=== PATIENT | male | born 1960 | race Caucasian/White ===

== ENCOUNTER 2024-01-24 09:33 | Emergency (ER) | payer OTHER, SELFPAY ==
[2024-01-24 09:55] VITALS: BP 177/102
--- NOTE | 2024-01-24 10:13 | ED.GENMED ---
History of Present Illness
General
Chief Complaint: Male Genito-Urinary Symptoms
Source: patient and spouse
Exam Limitations: none
Time Seen by Provider: 01/24/24 09:59
Nursing documentation reviewed up to this point in time: agreed with
History of Present Illness
History of Present Illness:
63-year-old male presenting to the emergency department today with concerns of inability to urinate since last night. Worsening discomfort this morning. Does have a history of enlarged prostate and has had some difficulty with starting his stream
over the past few weeks. Follows up with urology as an outpatient last seen [address] Fong. Denies any additional symptoms no new medications. Has been taking alfuzosin.
Review of Systems
Review of Systems
Allergies reviewed?: Yes
All Other Systems: ROS reviewed and negative except as documented in HPI and ROS
Phy Exam
Physical Exam
Physical Exam:
GENERAL: Alert , in no apparent distress
EYE: pupils equal and reactive
NECK: Supple, no significant adenopathy.
ENT: o/p clr, mmm.
CARDIAC: Regular rate and rhythm .
LUNGS: Clear breath sounds bilaterally, no acute respiratory distress, no wheezes/rales/rhonchi
ABDOMEN: Significant distention to the suprapubic region on examination discomfort to the area to palpation
NEUROLOGICAL: Alert and oriented, no focal neuro deficits
SKIN: Warm and dry, skin intact.
MUSCULOSKELETAL: No edema, well perfused.
PSYCH: Normal and appropriate interaction.
Course
Orders/Labs/Results
Orders:
Orders
01/24/24 10:08
Lidocaine 2% [Lidocaine Uro-Jet 2%] 1 syringe .[address] .[facility]
01/24/24 10:18
Urinalysis Reflex To Culture Urgent
Date Specimen was Collected: 01/24/24
Time Specimen was Collected: 10:17
Urine Microscopic Reflex Cult Urgent
Abnormal Lab Results
01/24/24
10:18
Ur Occult Blood Reflex 1+ A
(Negative)
Vital Signs
Initial and Last Documented VS:
Initial Vital Signs
Temp Pulse Resp BP Pulse Ox
98.2 F 88 18 177/102 97
01/24/24 09:55 01/24/24 09:55 01/24/24 09:55 01/24/24 09:55 01/24/24 09:55
Last Documented Vital Signs
Temp Pulse Resp BP Pulse Ox
98.2 F 88 18 177/102 97
01/24/24 09:55 01/24/24 09:55 01/24/24 09:55 01/24/24 09:55 01/24/24 09:55
MDM/Problems Addressed
MDM/Problems Addressed:
63-year-old male presenting to the emergency department with urinary retention since last night. Unable to void over the past few hours. Has had some tea starting a stream over the past few weeks and does have a history of known enlarged prostate.
No new medications or new changes according to the patient. On arrival blood pressure elevated otherwise vital signs are normal. Kapoor catheter was placed with at least 600 cc immediately draining. Immediately relief in symptoms with the
patient. Case discussed with urology will follow-up closely as an outpatient return precautions given.
*Critical Care Note
Total Time (30-74mins, 75-104mins- exclusive of procedures): Not Applicable
ED Attending Note
-
Portions of this chart may have been created with voice recognition software.� Occasional wrong word or��sound alike� substitutions may have occurred due to the inherent limitations of voice recognition software.
Discharge Plan
Departure
Patient Disposition: Home (Routine Discharge)
Date of Disposition: 01/24/24
Time of Disposition: 11:52
Patient with high blood pressure during this ER visit?: No
Condition: Good
Covid-19: Not Applicable
Discharge Problem:
Acute urinary retention
Instructions: How to Care for Your Kapoor Catheter, Male, Urinary Retention (DC)
Prescriptions:
No Action
allopurinol 300 MG tablet
300 mg PO DAILY
rosuvastatin [Crestor] 10 MG tablet
10 mg PO DAILY
alfuzosin 10 MG tablet extended release 24 hr
10 mg PO DAILY
hydrocodone-acetaminophen 1 TABLET tablet
1 - 2 tab PO Q4HPRN PRN (Reason: moderate to severe pain) Qty: 20 0RF
ondansetron 4 MG tablet,disintegrating
4 mg PO Q6HPRN PRN (Reason: nausea) Qty: 20 0RF
cephalexin 500 mg capsule
500 mg PO Q6H Qty: 20 0RF
Referrals:
Russel Byrd MD [Active] - Follow up in 5-7 days
Jag Vicente DO [Family Provider] -
Activity Restrictions/Additional Instructions:
You came to the emergency department today with concerns of urinary retention. You had a Kapoor placed. Please follow-up closely with urology in the next 1 to 2 weeks. Return to the emergency department for any worsening, new or concerning
symptoms.
Interventions
Interventions:
*Risk Screen - Suicide Last Done: 01/24/24 09:55
*General Assessment Last Done: 01/24/24 09:55
*Neglect/Abuse Screening Last Done: 01/24/24 09:55
Discharge Date and Time
Print Language: KHMER
[2024-01-24 10:31] LABS: Urine Albumin Negative (Neg - Trace); Urine Bilirubin Negative (Negative); Urine Character Clear (Clear); Urine Color Yellow; Urine Glucose Negative (Negative); Urine Ketone Negative (Negative); Urine Leukocyte Negative (Negative); Urine Nitrite Negative (Negative); Urine Occult Blood 1+ (Negative); Urine Specific Gravity 1.015 (<1.030); Urine Urobilinogen Negative (Neg - 1+)
[2024-01-24 12:28] VITALS: BP 141/89
[2024-01-24 12:46] LABS: Urine Amorphous Seen; Urine Squamous Cell 0-2 /LPF (Few); Urine White Cell 0-2 /HPF (0-5)
== END 2024-01-24 12:15 | disposition home or self-care (01) ==
LOC: EMR 09:33
PROVIDERS: Physician Assistant; EMERGENCY PHYSICIAN Emergency Medicine; FAMILY PHYSICIAN Internal Medicine
DX: N40.1 Benign prostatic hyperplasia with lower urinary tract symptoms (principal); R33.8 Other retention of urine
CPT/HCPCS: 51702; 99283; 81003; 81015

== ENCOUNTER 2024-02-03 17:27 | Emergency (ER) | payer OTHER, SELFPAY ==
[2024-02-03 17:28] VITALS: BP 148/98
[2024-02-03 18:32] VITALS: BMI 27.5
--- NOTE | 2024-02-03 18:44 | ED.GENMED ---
Addendum entered and electronically signed by Howard Bacon PA-C 02/06/24 10:48:
Urine culture shows gram-negative bacilli greater than 100,000 colony-forming units. Patient placed on cefdinir. Sensitivities pending
Original Note:
History of Present Illness
<LASHAY Stephens - Last Filed: 02/03/24 21:54>
General
Chief Complaint: Flank Pain
Source: patient
Exam Limitations: none
Time Seen by Provider: 02/03/24 18:10
History of Present Illness
History of Present Illness:
This is a 62 year old male that comes in with c/o fever and chills. States that he had a catheter on the 02-22 as he was unable to urinate. States that he went to the Urologist on Monday and he had this removed. States that 2 days ago he
started with some upper back aches and then today he just couldn't get warm. States that he had a headache, pain and tingling in the extremities and his left kidney area hurt. Occasionally the right kidney area is sore. States that he has a fever
and urinary frequency. States that he had chills, burning at the end of urination. Denies any chest pain, SOB, abd pain, nausea, vomiting, diarrhea, dizziness.
Past History
<LASHAY Stephens - Last Filed: 02/03/24 21:54>
Past History
ED Past Medical History: Hypercholesterolemia and Other (hemorrhoids, Hernia, tinnitus, varicocele)
ED Past Surgical History: Other (Deviated septum, Upper eye lid surgery)
Social History
Tobacco: Non-smoker
Alcohol: Occasional
Personal:
Living: with family
Review of Systems
<LASHAY Stephens - Last Filed: 02/03/24 21:54>
Review of Systems
All Other Systems: ROS reviewed and negative except as documented in HPI and ROS
Constitutional: Reports fever and chills
EENT: Reports no symptoms
Respiratory: Reports no symptoms; Denies cough or trouble breathing
Cardiac: Reports no symptoms; Denies chest pain
ABD/GI: Reports no symptoms; Denies abdominal pain, nausea, vomiting or diarrhea
: Reports dysuria and frequency; Denies urgency
Musculoskeletal: Reports other (Body aches)
Skin: Reports no symptoms
Neurological: Reports headache; Denies dizzy
Psychiatric: Reports no symptoms
Phy Exam
<LASHAY Stephens - Last Filed: 02/03/24 21:54>
General Physical Exam
General Presentation: no apparent distress
General age: appears stated age
General Skin: warm and dry
General Habitus: normal
General Mental: alert
General Hydration: dry mucous membranes
ENT Exam
ENT Exam: TM's normal, pharynx normal and neck supple
Eye Exam
Eye Exam: EOMI
Cardiovascular Exam
Cardiovascular Exam: regular rate/rhythm, no edema, no murmur and normal peripheral pulses
Pulmonary Exam
Pulmonary Exam: lungs clear, no respiratory distress, no rales, chest non tender, no crackles, no rhonchi, no wheezing and no cough
Gastrointestinal Exam
Gastrointestinal Exam: normal bowel sounds, non tender, soft, no organomegaly, no pulsatile mass, non distended and no cva tenderness
Musculoskeletal Exam
Musculoskeletal Exam: full ROM and no edema
Skin Exam
Skin Exam: normal color, warm/dry, no rash and no petechia
Psychiatric Exam
Psychiatric Exam: normal mood/affect
Sepsis
<LASHAY Stephens - Last Filed: 02/03/24 21:54>
Sepsis Screening
Sepsis Assessment: Sepsis Ruled Out
Sepsis Screen
Sepsis Screen: Sepsis Ruled Out
Date: 02/03/24
Time: 21:54
Course
<LASHAY Stephens - Last Filed: 02/03/24 21:54>
Orders/Labs/Results
Orders:
Orders
02/03/24 18:43
0.9% Sodium Chloride 1000 ml [Nss] 1,000 ml IV BOLUS
Acetaminophen [Tylenol] 1,000 mg PO NOW STA
02/03/24 18:51
CT Abd/pel Without Iv Or Oral Urgent
Comment:
Reason For Exam: Left kidney pain. fever
02/03/24 18:56
COVID-19 Antigen Urgent
Source: Nasal Swab
Complete Blood Count/With Diff Urgent
Comprehensive Metabolic Panel Urgent
Lactic Acid Q4H
Comment: CANCEL 2nd LACTIC ACID IF 1st LACTIC ACID IS LESS THAN 2
Urinalysis Reflex To Culture Urgent
Date Specimen was Collected: 02/03/24
Time Specimen was Collected: 18:46
Urine Microscopic Reflex Cult Urgent
Blood Culture Urgent
SAW Source: Blood/Venous
Specimen Description:
Urine Culture Urgent
SAW Source: U
Specimen Description:
Date Specimen was Collected: 02/03/24
Time Specimen was Collected: 18:46
02/03/24 20:32
CefTRIAXone [Rocephin] 1,000 mg IV NOW STA
02/03/24 22:45
Lactic Acid Q4H
Comment: CANCEL 2nd LACTIC ACID IF 1st LACTIC ACID IS LESS THAN 2
Abnormal Lab Results
02/03/24
18:56
WBC 13.0 H 10^3/uL
(4.8-10.8)
RBC 4.16 L 10^6/uL
(4.70-6.10)
Hgb 12.7 L g/dL
(13.0-18.0)
Hct 38.3 L %
(39.0-52.0)
Absolute Neuts (auto) 10.4 H 10^3/uL
(1.4-6.5)
Absolute Monos (auto) 1.1 H 10^3/uL
(0.1-0.6)
Neutrophils % 80.1 H %
(42.2-75.2)
Lymphocytes % 10.1 L %
(20.5-51.1)
BUN 21 H mg/dl
(9-20)
Total Bilirubin 1.4 H mg/dl
(0.2-1.3)
Ur Occult Blood Reflex Trace A
(Negative)
Urine Nitrite (Reflex) Positive A
(Negative)
Leukocyte Esterase Rfl 2+ A
(Negative)
Urine WBC (Reflex) 26-30 A /HPF
(0-5)
Urine Bacteria (Reflex) Many A
(Negative)
02/03/24 18:56
02/03/24 18:56
Leukocytosis, H/H slightly low. Dehydration. Urine positive for infection. Lactic acid normal at 0.7, COVID negative.
Vital Signs
Initial and Last Documented VS:
Initial Vital Signs
Temp Pulse Resp BP Pulse Ox
101.5 F H 110 16 148/98 96
02/03/24 17:28 02/03/24 17:28 02/03/24 17:28 02/03/24 17:28 02/03/24 17:28
Last Documented Vital Signs
Temp Pulse Resp BP Pulse Ox
101.5 F H 93 16 148/98 96
02/03/24 17:28 02/03/24 18:32 02/03/24 18:32 02/03/24 17:28 02/03/24 17:28
<Alli Perez MD - Last Filed: 02/03/24 21:45>
Orders/Labs/Results
Orders:
Orders
02/03/24 18:43
0.9% Sodium Chloride 1000 ml [Nss] 1,000 ml IV BOLUS
Acetaminophen [Tylenol] 1,000 mg PO NOW STA
02/03/24 18:51
CT Abd/pel Without Iv Or Oral Urgent
Comment:
Reason For Exam: Left kidney pain. fever
02/03/24 18:56
COVID-19 Antigen Urgent
Source: Nasal Swab
Complete Blood Count/With Diff Urgent
Comprehensive Metabolic Panel Urgent
Lactic Acid Q4H
Comment: CANCEL 2nd LACTIC ACID IF 1st LACTIC ACID IS LESS THAN 2
Urinalysis Reflex To Culture Urgent
Date Specimen was Collected: 02/03/24
Time Specimen was Collected: 18:46
Urine Microscopic Reflex Cult Urgent
Blood Culture Urgent
SAW Source: Blood/Venous
Specimen Description:
Urine Culture Urgent
SAW Source: U
Specimen Description:
Date Specimen was Collected: 02/03/24
Time Specimen was Collected: 18:46
02/03/24 20:32
CefTRIAXone [Rocephin] 1,000 mg IV NOW STA
02/03/24 22:45
Lactic Acid Q4H
Comment: CANCEL 2nd LACTIC ACID IF 1st LACTIC ACID IS LESS THAN 2
Abnormal Lab Results
02/03/24
18:56
WBC 13.0 H 10^3/uL
(4.8-10.8)
RBC 4.16 L 10^6/uL
(4.70-6.10)
Hgb 12.7 L g/dL
(13.0-18.0)
Hct 38.3 L %
(39.0-52.0)
Absolute Neuts (auto) 10.4 H 10^3/uL
(1.4-6.5)
Absolute Monos (auto) 1.1 H 10^3/uL
(0.1-0.6)
Neutrophils % 80.1 H %
(42.2-75.2)
Lymphocytes % 10.1 L %
(20.5-51.1)
BUN 21 H mg/dl
(9-20)
Total Bilirubin 1.4 H mg/dl
(0.2-1.3)
Ur Occult Blood Reflex Trace A
(Negative)
Urine Nitrite (Reflex) Positive A
(Negative)
Leukocyte Esterase Rfl 2+ A
(Negative)
Urine WBC (Reflex) 26-30 A /HPF
(0-5)
Urine Bacteria (Reflex) Many A
(Negative)
02/03/24 18:56
02/03/24 18:56
Vital Signs
Initial and Last Documented VS:
Initial Vital Signs
Temp Pulse Resp BP Pulse Ox
101.5 F H 110 16 148/98 96
02/03/24 17:28 02/03/24 17:28 02/03/24 17:28 02/03/24 17:28 02/03/24 17:28
Last Documented Vital Signs
Temp Pulse Resp BP Pulse Ox
101.5 F H 93 16 148/98 96
02/03/24 17:28 02/03/24 18:32 02/03/24 18:32 02/03/24 17:28 02/03/24 17:28
<LASHAY Stephens - Last Filed: 02/03/24 21:54>
MDM/Problems Addressed
Differential Diagnosis Includes:
UTI, COVID, Renal calculus
MDM/Problems Addressed:
This is a 63 year old male that comes in with c/o fever and urinary burning. States that he had a catheter removed on Monday and that he know has body aches, fever, urinary frequency and burning.
Will check labs. CT scan to r/o any stones and Urine. Will give IV fluids and Tylenol.
Back into see patient and . Reviewed findings and explained why CT was obtained. Dr. Perez into see patient and speak with a ID Friend in [place].
It was decided that the patient will go home and the ID doctor would like patient on Antibiotics for [address] on Cefdinir for 2 weeks with follow up with Dr. Fong. Will discharge home
Chronic conditions affecting care:
NA
Acute Exacerbation and/or Progression of Chronic Illness:
NA
<LASHAY Stephens - Last Filed: 02/03/24 21:54>
*Radiology
Radiology exam reviewed: radiology read reviewed (CT- Suspect cystitis in the appropirate clinical centex. Otherwise no significant acute abnormality identified in the abdomen or pelvis, within the limits of unenhanced CT, as described above. No
urinary calculi or hydronephrosis. )
*Pulse Oximetry
Patient hypoxic: no
*EKG
Interpreted by ED Provider?: NA
Rate: EKG- N/A
*[place] Interpretation
Rate: [place] Reo- N/A
*Critical Care Note
Total Time (30-74mins, 75-104mins- exclusive of procedures): Not Applicable
ED Attending Note
<LASHAY Stephens - Last Filed: 02/03/24 21:54>
-
Portions of this chart may have been created with voice recognition software.� Occasional wrong word or��sound alike� substitutions may have occurred due to the inherent limitations of voice recognition software.
<Alli Perez MD - Last Filed: 02/03/24 21:45>
ED Attending Note
Patient seen and examined by attending physician: Yes
I performed the substantive portion of visit, reviewed & personally made and approve the management plan that is documented in note by myself or ROME.: Yes
ED Attending Note:
63-year-old male Kapoor removal 3 to 4 days ago. Fever chills today. No vomiting no lightheadedness or weakness. No other infectious symptoms.
Patient is nontoxic. Currently on his iPad. Lungs clear and equal. Heart regular rate and rhythm. Abdomen soft and nontender. No suprapubic distention. No CVA tenderness.
Labs consistent with a infected urine. Lactic acid normal. CT shows cystitis. No obstructing stone. Discussed with patient family and family friend who is an infectious disease physician. Comfortable with outpatient management.
Discharge Plan
Departure
Patient Disposition: Home (Routine Discharge)
Date of Disposition: 02/03/24
Time of Disposition: 21:45
Patient with high blood pressure during this ER visit?: Yes
Condition: Good
Covid-19: Not Applicable
Discharge Problem:
Urinary tract infection
Instructions: Urinary Tract Infection, Adult ED, BLOOD PRESSURE
Prescriptions:
New
cefdinir 300 mg capsule
300 mg PO BID Qty: 28 0RF
No Action
allopurinol 300 MG tablet
300 mg PO DAILY
rosuvastatin [Crestor] 10 MG tablet
10 mg PO DAILY
alfuzosin 10 MG tablet extended release 24 hr
10 mg PO DAILY
hydrocodone-acetaminophen 1 TABLET tablet
1 - 2 tab PO Q4HPRN PRN (Reason: moderate to severe pain) Qty: 20 0RF
ondansetron 4 MG tablet,disintegrating
4 mg PO Q6HPRN PRN (Reason: nausea) Qty: 20 0RF
cephalexin 500 mg capsule
500 mg PO Q6H Qty: 20 0RF
Referrals:
Johnie Fong Jr., MD [Active] - Follow up in 2-3 days
Jag Vicente DO [Family Provider] -
Activity Restrictions/Additional Instructions:
As discussed, your blood work shows that your white blood cell count is mildly elevated. Your are slightly dehydration. Please increase your water intake to 8-8oz glasses daily. Your are postive for a urinary tract infection and your CT shows
cystitis. You are negative for COVID. You have been given IV antibiotic here and a prescription has been sent to your Pharmacy for the next 14 days. Please follow up with your Urologist for further evaluation. Tylenol 1000mg every 6 hours as needed
for any fever. IF YOU HAVE FEVER THAT IS NOT CONTROLLED OR YOU JUST DON'T FEEL WELL PLEASE RETURN TO THE EMERGENCY ROOM.
Interventions
Interventions:
*Risk Screen - Suicide Last Done: 02/03/24 17:28
*General Assessment Last Done: 02/03/24 17:28
*Neglect/Abuse Screening Last Done: 02/03/24 17:28
ED- Fall Risk Assessment Last Done: 02/03/24 18:32
*ED COVID-19 Vaccine History Last Done: 02/03/24 17:28
RC-Jzygdq-Tsmoywlluc Assessment Last Done: 02/03/24 18:32
ED-Male Genitourinary Assessment Last Done: 02/03/24 18:32
Discharge Date and Time
Print Language: LATVIAN
[2024-02-03] MEDS: TYLENOL 1000 MG PO (18:50)
[2024-02-03] MEDS: NSS 1000 IV (18:56)
[2024-02-03 19:21] LABS: Lactic Acid 0.7 mmol/L (0.7-2.0)
[2024-02-03 19:22] LABS: Urine Albumin Trace (Neg - Trace); Urine Bilirubin Negative (Negative); Urine Character Very Cloudy (Clear); Urine Color Yellow; Urine Glucose Negative (Negative); Urine Ketone Negative (Negative); Urine Leukocyte 2+ (Negative); Urine Nitrite Positive (Negative); Urine Occult Blood Trace (Negative); Urine Urobilinogen Negative (Neg - 1+)
[2024-02-03 19:24] LABS: ALT (SGPT) 24 U/L (0-50); AST (SGOT) 24 U/L (17-59); Albumin 4.2 g/dl (3.5-5.0); Alkaline Phosphatase 97 U/L (38-126); Blood Urea Nitrogen 21 mg/dl (9-20); Calcium 9.1 mg/dl (8.4-10.2); Carbon Dioxide 25 mmol/L (22-30); Chloride 104 mmol/L (98-107); Estimated Creatinine Clearance 60 ml/min; Glucose 99 mg/dl (70-99); Potassium 4.4 mmol/L (3.5-5.1); Sodium 139 mmol/L (135-145); Total Bilirubin 1.4 mg/dl (0.2-1.3); Total Protein 7.1 g/dl (6.3-8.2); eGFR > 60.00
[2024-02-03 19:30] LABS: COVID-19 Antigen Negative (Negative)
[2024-02-03 19:32] LABS: Urine Bacteria Many (Negative); Urine Squamous Cell 0-2 /LPF (Few)
[2024-02-03 19:33] LABS: Urine Red Blood Cell 0-2 /HPF (0-2); Urine White Cell 26-30 /HPF (0-5)
[2024-02-03 20:59] LABS: % Basophils 0.4 % (0-2); % Eosinophils 0.5 % (0-6); % Immature Granulocytes 0.3 % (0-0.5); % Lymphocytes 10.1 % (20.5-51.1); % Monocytes 8.6 % (1.7-9.3); % Neutrophils 80.1 % (42.2-75.2); Absolute Basophils 0.1 10^3/uL (0-0.2); Absolute Eosinophils 0.1 10^3/uL (0-0.7); Absolute Lymphocytes 1.3 10^3/uL (1.2-3.4); Absolute Monocytes 1.1 10^3/uL (0.1-0.6); Absolute Neutrophils 10.4 10^3/uL (1.4-6.5); Hematocrit 38.3 % (39.0-52.0); Hemoglobin 12.7 g/dL (13.0-18.0); Mean Corp Hgb Conc. 33.2 g/dL (33.0-37.0); Mean Corpuscular Hgb 30.5 pg (27.0-31.0); Mean Corpuscular Volume 92.1 fL (80.0-94.0); Mean Platelet Volume 9.6 fL (7.4-10.4); Nucleated Red Blood Cells % 0 % (-); Platelet Count 209 10^3/uL (130-400); Red Blood Cell Count 4.16 10^6/uL (4.70-6.10); Red Cell Dist. Width 12.7 % (11.5-14.5)
[2024-02-03] MEDS: ROCEPHIN 1000 MG IV (21:18)
[2024-02-03 21:25] VITALS: BP 126/78
== END 2024-02-03 22:01 | disposition home or self-care (01) ==
LOC: EMR 17:27
PROVIDERS: Clinical Nurse Specialist Family Health; EMERGENCY PHYSICIAN Emergency Medicine; FAMILY PHYSICIAN Internal Medicine
DX: N39.0 Urinary tract infection, site not specified (principal); E78.00 Pure hypercholesterolemia, unspecified; Z87.19 Personal history of other diseases of the digestive system
CPT/HCPCS: 99284; 96374; 96361; 74176; 80053; 81003; 81015; 83605; 85025; 87040; 87077; 87086; 87811

== ENCOUNTER 2024-02-07 10:45 | Emergency (ER) | payer OTHER, SELFPAY ==
[2024-02-07 10:45] VITALS: BMI 28.1
[2024-02-07 11:02] VITALS: BP 158/98
[2024-02-07 12:00] VITALS: BP 134/68
--- NOTE | 2024-02-07 12:01 | ED.GENMED ---
History of Present Illness
General
Chief Complaint: Abnormal Lab Value
Source: patient
Exam Limitations: none
Time Seen by Provider: 02/07/24 11:44
Nursing documentation reviewed up to this point in time: agreed with
History of Present Illness
History of Present Illness:
Patient seen in ED 5 days ago and treated with antibiotics for urinary tract infection, presents to ED from urology office after urine culture came back positive for drug-resistant organism. Patient has been on cefdinir upon discharge. Patient
states that since being discharged from the ED, he was still continued to experience fever and chills, back pain and body ache. However, starting yesterday, fever has subsided and when he woke up this morning, patient family felt as if he was
feeling better. Patient denies fever over the past 24 hours. Denies nausea or vomiting. Denies loss of appetite. Denies back pain. Denies difficulty with urination.
Past History
Past History
ED Past Medical History: Hypercholesterolemia and Other (hemorrhoids, Hernia, tinnitus, varicocele)
ED Past Surgical History: Other (Deviated septum, Upper eye lid surgery)
Social History
Tobacco: Non-smoker
Alcohol: Occasional
Personal:
Living: with family
Review of Systems
Review of Systems
Allergies reviewed?: Yes
All Other Systems: ROS reviewed and negative except as documented in HPI and ROS
Constitutional: Reports fever and chills
ABD/GI: Reports no symptoms
: Reports no symptoms
Musculoskeletal: Reports no symptoms
Skin: Reports no symptoms
Neurological: Reports no symptoms
Phy Exam
Physical Exam
Physical Exam:
Physical Exam
General: no apparent distress, not acutely ill. afebrile
Head: nc/at. eomi
Neck: supple. no meningeal signs.
Heart: s1/s2 regular rate and rhythm, no murmur. equal radial pulses.
Lungs: no acute respiratory distress. clear bilaterally
Abdomen: normal bowel sounds. not tender.
Neuro: alert and oriented. no focal neurological deficits
Skin: no rash
Psychiatric: well kept. interactive and cooperative
Extremities: no edema. no calf tenderness.
Course
Vital Signs
Initial and Last Documented VS:
Initial Vital Signs
Temp Pulse Resp BP Pulse Ox
97.9 F 83 16 158/98 100
02/07/24 11:02 02/07/24 11:02 02/07/24 11:02 02/07/24 11:02 02/07/24 11:02
Last Documented Vital Signs
Temp Pulse Resp BP Pulse Ox
97.9 F 74 16 134/68 99
02/07/24 11:02 02/07/24 12:00 02/07/24 14:00 02/07/24 12:00 02/07/24 12:00
MDM/Problems Addressed
MDM/Problems Addressed:
Reviewed urine culture result from 02/02, and discussed result with on-call ID physician, Dr. Gordillo, including patient's clinical presentation. As patient has remained afebrile over the past 24 hours, with complete resolution of any symptoms
today, it is quite likely that patient is improving clinically despite urine culture result which had revealed ESBL E. coli. As such, there is no definitive indication to switch patient's antibiotics via PICC line for extended treatment. Will
recommend that patient continue his already prescribed antibiotics and follow-up with his PMD/urologist for reevaluation. If at any point, patient's symptoms were to worsen, i.e. fever/chills/body aches/back pain, patient advised to return to ED
immediately for reevaluation, including likely admission for IV antibiotics. Discussed treatment options, including potential admission to the hospital at this time. However, with discussion and recommendation from ID physician, patient feels
comfortable going home at this time, with treatment plan outlined.
Dr. Fong, urology, made aware. Urine culture has been reordered during office visit this morning. Dr. Fong will follow-up with the patient on Monday.
*Critical Care Note
Total Time (30-74mins, 75-104mins- exclusive of procedures): Not Applicable
ED Attending Note
-
Portions of this chart may have been created with voice recognition software.� Occasional wrong word or��sound alike� substitutions may have occurred due to the inherent limitations of voice recognition software.
Discharge Plan
Departure
Patient Disposition: Home (Routine Discharge)
Date of Disposition: 02/07/24
Time of Disposition: 14:23
Patient with high blood pressure during this ER visit?: Yes
Condition: Good
Discharge Problem:
Acute UTI
Instructions: Urinary Tract Infection, Adult ED
Prescriptions:
No Action
allopurinol 300 MG tablet
300 mg PO QPM
rosuvastatin [Crestor] 10 MG tablet
10 mg PO QPM
acetaminophen [Tylenol Extra Strength] 500 mg Tablet
1,000 mg PO BIDPRN PRN (Reason: FEVER)
tamsulosin [Flomax] 0.4 mg Capsule
0.4 mg PO BID
ibuprofen [Advil] 200 mg Tablet
400 mg PO Q8HPRN PRN (Reason: headache )
methen-sod phos-meth blue-hyos [Urogesic-Blue] 81.6-40.8-0.12 mg Tablet
1 tab PO BID
Patient Comments:
02/07/24-PATIENT HAS FREE SAMPLES
cefdinir 300 mg capsule
300 mg PO BID
Referrals:
Jag Vicente DO [Family Provider] -
Activity Restrictions/Additional Instructions:
As discussed, please follow-up with your primary care physician and/or neurologist for further evaluation treatment. Please return to ED immediately with recurrent fever/vomiting/back pain.
Interventions
Interventions:
*Risk Screen - Suicide Last Done: 02/07/24 11:02
*General Assessment Last Done: 02/07/24 11:02
*Neglect/Abuse Screening Last Done: 02/07/24 11:02
ED- Fall Risk Assessment Last Done: 02/07/24 13:57
*ED COVID-19 Vaccine History Last Done: 02/07/24 11:02
*Nursing Disposition Last Done: 02/07/24 14:28
Discharge Date and Time
Discharge Date/Time: 02/07/24 14:29
Print Language: ARMENIAN
--- NOTE | 2024-02-07 13:30 | CM ---
CM consult placed. Attending wanting to know if patient would be able to be d/c'd with a PICC and antibiotics with [facility] infusion. CM called [facility] infusion center. It would be difficult to accomplish, d/t the holiday tomorrow.
== END 2024-02-07 14:29 | disposition home or self-care (01) ==
LOC: EMR 10:45
PROVIDERS: EMERGENCY PHYSICIAN Emergency Medicine; FAMILY PHYSICIAN Internal Medicine
DX: N39.0 Urinary tract infection, site not specified (principal); R03.0 Elevated blood-pressure reading, without diagnosis of hypertension; M54.9 Dorsalgia, unspecified; E78.00 Pure hypercholesterolemia, unspecified; N40.1 Benign prostatic hyperplasia with lower urinary tract symptoms; R35.0 Frequency of micturition; Z87.891 Personal history of nicotine dependence
CPT/HCPCS: 99282

== ENCOUNTER 2024-02-10 07:07 | Emergency (ER) | payer OTHER, SELFPAY ==
[2024-02-10 07:12] VITALS: BP 157/120
--- NOTE | 2024-02-10 07:53 | ED.GENMED ---
History of Present Illness
General
Chief Complaint: Male Genito-Urinary Symptoms
Source: patient
Exam Limitations: none
Time Seen by Provider: 02/10/24 07:23
Nursing documentation reviewed up to this point in time: agreed with
History of Present Illness
History of Present Illness:
63-year-old male past medical history of BPH recent UTIs presenting to the emergency department today with concerns of urinary retention since this morning. Unable to urinate at home has been battling a urinary tract infection over the past few
weeks. Has needed a catheter in the past had this removed a few weeks ago. Follows with urology here.
Past History
Past History
ED Past Medical History: Hypercholesterolemia and Other (hemorrhoids, Hernia, tinnitus, varicocele)
ED Past Surgical History: Other (Deviated septum, Upper eye lid surgery)
Social History
Tobacco: Non-smoker
Alcohol: Occasional
Personal:
Living: with family
Review of Systems
Review of Systems
Allergies reviewed?: Yes
All Other Systems: ROS reviewed and negative except as documented in HPI and ROS
Phy Exam
Physical Exam
Physical Exam:
GENERAL: Alert , in no apparent distress
EYE: pupils equal and reactive
NECK: Supple, no significant adenopathy.
ENT: o/p clr, mmm.
CARDIAC: Regular rate and rhythm .
LUNGS: Clear breath sounds bilaterally, no acute respiratory distress, no wheezes/rales/rhonchi
ABDOMEN: Distended suprapubic region, otherwise soft, without focal tenderness, no r/g, no cvat
NEUROLOGICAL: Alert and oriented, no focal neuro deficits
SKIN: Warm and dry, skin intact.
MUSCULOSKELETAL: No edema, well perfused.
PSYCH: Normal and appropriate interaction.
Course
Orders/Labs/Results
Orders:
Orders
02/10/24 07:32
Lidocaine 2% [Lidocaine Uro-Jet 2%] 1 syringe .ROUTE .STK-MED ONE
02/10/24 07:50
Urinalysis Reflex To Culture Urgent
Date Specimen was Collected: 02/10/24
Time Specimen was Collected: 07:49
Comment: pastor placement, patient on medications causing blue hue
Urine Microscopic Reflex Cult Urgent
02/10/24 08:06
Pastor [Pastor Placement- Treatment] ONCE
Reason for insertion: Acute Retention
Abnormal Lab Results
02/10/24
07:50
Ur Occult Blood Reflex 1+ A
(Negative)
Urine RBC 11-15 A /HPF
(0-2)
Urine Bacteria (Reflex) Few A
(Negative)
Vital Signs
Initial and Last Documented VS:
Initial Vital Signs
Temp Pulse Resp BP Pulse Ox
98.1 F 82 16 157/120 98
02/10/24 07:12 02/10/24 07:12 02/10/24 07:12 02/10/24 07:12 02/10/24 07:12
Last Documented Vital Signs
Temp Pulse Resp BP Pulse Ox
98.1 F 82 16 157/120 98
02/10/24 07:12 02/10/24 07:12 02/10/24 07:12 02/10/24 07:12 02/10/24 07:12
MDM/Problems Addressed
MDM/Problems Addressed:
63-year-old male presenting with urinary retention. Recent UTI denies any symptoms of worsening urinary tract infection denies any fevers back pain nausea vomiting or any systemic symptoms. Catheter placed now patient asymptomatic. Urinalysis
without evidence of infection. Otherwise urology contacted patient will follow-up closely this week. Return precautions given.
*Critical Care Note
Total Time (30-74mins, 75-104mins- exclusive of procedures): Not Applicable
ED Attending Note
-
Portions of this chart may have been created with voice recognition software.� Occasional wrong word or��sound alike� substitutions may have occurred due to the inherent limitations of voice recognition software.
Discharge Plan
Departure
Patient Disposition: Home (Routine Discharge)
Date of Disposition: 02/10/24
Time of Disposition: 09:48
Patient with high blood pressure during this ER visit?: No
Condition: Good
Covid-19: Not Applicable
Discharge Problem:
Acute urinary retention
Instructions: How to Care for Your Pastor Catheter, Male, Urinary Retention (DC)
Prescriptions:
No Action
allopurinol 300 MG tablet
300 mg PO QPM
rosuvastatin [Crestor] 10 MG tablet
10 mg PO QPM
acetaminophen [Tylenol Extra Strength] 500 mg Tablet
1,000 mg PO BIDPRN PRN (Reason: FEVER)
tamsulosin [Flomax] 0.4 mg Capsule
0.4 mg PO BID
ibuprofen [Advil] 200 mg Tablet
400 mg PO Q8HPRN PRN (Reason: headache )
methen-sod phos-meth blue-hyos [Urogesic-Blue] 81.6-40.8-0.12 mg Tablet
1 tab PO BID
Patient Comments:
02/07/24-PATIENT HAS FREE SAMPLES
cefdinir 300 mg capsule
300 mg PO BID
Referrals:
Jag Vicente DO [Family Provider] -
Activity Restrictions/Additional Instructions:
You came to the emergency department today with concerns of urinary retention. Catheter was placed. Please leave this in place until urology follow-up. Return precautions given.
Interventions
Interventions:
*Risk Screen - Suicide Last Done: 02/10/24 07:12
*General Assessment Last Done: 02/10/24 07:12
*Neglect/Abuse Screening Last Done: 02/10/24 07:12
ED- Fall Risk Assessment Last Done: 02/10/24 07:07
ED-Male Genitourinary Assessment Last Done: 02/10/24 07:07
Discharge Date and Time
Print Language: ANDORRAN
[2024-02-10 08:31] LABS: Urine Albumin Trace (Neg - Trace); Urine Bilirubin Negative (Negative); Urine Character Clear (Clear); Urine Glucose Negative (Negative); Urine Ketone Negative (Negative); Urine Leukocyte Negative (Negative); Urine Nitrite Negative (Negative); Urine Occult Blood 1+ (Negative); Urine Specific Gravity 1.015 (<1.030); Urine Urobilinogen Negative (Neg - 1+)
[2024-02-10 08:43] LABS: Urine Squamous Cell 0-2 /LPF (Few)
[2024-02-10 08:44] LABS: Urine Bacteria Few (Negative); Urine White Cell 0-2 /HPF (0-5)
[2024-02-10 09:50] VITALS: BP 138/74
== END 2024-02-10 09:50 | disposition home or self-care (01) ==
LOC: EMR 07:07
PROVIDERS: Physician Assistant; EMERGENCY PHYSICIAN Student in an Organized Health Care Education/Training Program; FAMILY PHYSICIAN Internal Medicine
DX: N40.1 Benign prostatic hyperplasia with lower urinary tract symptoms (principal); R33.8 Other retention of urine; E78.00 Pure hypercholesterolemia, unspecified; Z87.440 Personal history of urinary (tract) infections; Z87.891 Personal history of nicotine dependence
CPT/HCPCS: 99284; 51702; 51798; 81003; 81015

== ENCOUNTER → 2024-02-15 07:30 | Outpatient (REF) | payer OTHER, SELFPAY | LOC: MRI 3T 07:30 | PROVIDERS: ATTENDING PHYSICIAN Specialist; FAMILY PHYSICIAN Internal Medicine | DX: R97.20 Elevated prostate specific antigen [PSA] (principal) | CPT/HCPCS: 72197; A9575 ==

== ENCOUNTER 2024-03-22 16:06 | Inpatient (IN) | payer OTHER, SELFPAY ==
[2024-03-22 07:45] VITALS: BP 139/80
--- NOTE | 2024-03-22 08:02 | ED.GENMED ---
History of Present Illness
General
Chief Complaint: Male Genito-Urinary Symptoms
Time Seen by Provider: 03/22/24 08:02
History of Present Illness
History of Present Illness:
TIME OF INITIAL ENCOUNTER: 8:05 AM
HPI: Patient had prostate biopsy 10 days ago. He comes in due to a fever. He was doing well immediately after the biopsy. Before the biopsy he tested positive for COVID. He then reports a flulike illness more recently. Then improved again but
then most recently had been having shaking chills last night could not get warm. He has minimal cough. He has generalized achiness. Has a little bit of a headache. He did take Advil about 8 hours ago. He has a catheter currently. He had ESBL
UTI nearly 2 months ago. He has no flank pain.
EXAM:
GENERAL: Well appearing in no distress
HEENT: Moist oral mucosa
CARDIOVASCULAR: No murmurs, tachycardic heart rate, regular rhythm, No chest wall tenderness
PULMONARY: No respiratory distress, breath sounds are clear and equal
ABDOMEN: Soft with no peritoneal signs, no tenderness, the patient has a Kapoor catheter in place
NEUROLOGIC: Excellent strength all extremities, no coordination deficits
PSYCHIATRIC: Appropriate mental status, normal insight and judgement
EXTREMITIES: Nontender, no edema, moves all extremities equally
SKIN: No rash, no lesions
NUMBER AND COMPLEXITY OF PROBLEMS ADDRESSED AT THE ENCOUNTER
� Chronic conditions affecting care: Hyperlipidemia, BPH, urinary retention
� Acute Exacerbation and/or Progression of Chronic Illness: This is an acute problem
� Differential Diagnosis includes: UTI, bacteremia, sepsis, viral syndrome, flu, pneumonia less likely. He recently tested positive for COVID.
AMOUNT AND/OR COMPLEXITY OF DATA TO BE REVIEWED AND ANALYZED
� I performed an independent evaluation of and my interpretation is:
EKG:
CT:
X-rays: Chest x-ray shows no definite sign of pneumonia
Laboratory Studies: White count 15.2 which is new, creatinine 1.4, flu negative, urinalysis shows 11-15 white cells per high-power field with less than 2 squamous epithelial cells
Other: Ultrasound shows fatty liver
� Review of other/old records: I reviewed records, the patient was seen here for acute urinary retention twice this past January and also was diagnosed with a UTI last January. Urine culture from 02/03/2024 showed E. coli.
� Clinical information was obtained by an independent historian: None needed
� Prescriptions/Medications Considered but not given:
� Further testing considered but not performed:
RISK OF COMPLICATIONS AND/OR MORBIDITY OR MORTALITY OF PATIENT MANAGEMENT
� Social determinants of health affecting care: Lives at home
� Discussion with other providers:I discussed case with Dr. Gordillo who recommends patient stay in the hospital for ertapenem; hospitalist for admission
� Escalation of care including admission/observation vs risk of discharge considered: I reviewed records. The patient was initially placed on cefdinir 02/02/2024 but then urine culture grew ESBL E. coli. However he was not
switched to a different antibiotic as he did have significant improvement with the cefdinir. The patient is borderline febrile here and is tachycardic upon arrival. Giving IV fluids and Tylenol. He states that his prostate biopsy was performed at
[facility] using laser treatment (reportedly not done here). He was given a dose of antibiotics in the hospital but was not given a prescription for any further antibiotics.
ANY OTHER UPDATES:
At the midpoint of his stay in the [facility], he did have a headache and Toradol was given as a one-time dose.
Past History
Past History
ED Past Medical History: Hypercholesterolemia and Other (hemorrhoids, Hernia, tinnitus, varicocele)
ED Past Surgical History: Other (Deviated septum, Upper eye lid surgery)
Social History
Tobacco: Non-smoker
Alcohol: Occasional
Personal:
Living: with family
Phy Exam
Physical Exam
Physical Exam:
See HPI
Course
Orders/Labs/Results
Orders:
Orders
03/22/24 08:14
0.9% Sodium Chloride 1000 ml [Nss] 1,000 ml IV BOLUS
CR Chest - 2 Views Urgent
Comment:
Reason For Exam: fever
03/22/24 08:17
Methenamine Hippurate [Hiprex] 1 gram PO NOW STA
Tamsulosin [Flomax] 0.4 mg PO NOW STA
03/22/24 08:27
Acetaminophen [Tylenol] 1,000 mg PO NOW STA
03/22/24 09:02
Complete Blood Count/With Diff Urgent
Comprehensive Metabolic Panel Urgent
Direct Bilirubin Urgent
Comment: DIRECT BILIRUBIN ADDED ON BY FLOOR 3PM 03-22-24
Lactic Acid Urgent
Blood Culture Q30M
SAW Source: Blood/Venous
Specimen Description:
Blood Culture Q30M
SAW Source: Blood/Venous
Specimen Description:
Influenza A+B Rapid Molecular Urgent
SAW Source: Nasal Swab
Specimen Description:
03/22/24 09:40
Urinalysis Reflex To Culture Urgent
Date Specimen was Collected: 03/22/24
Time Specimen was Collected: 09:37
Urine Microscopic Reflex Cult Urgent
Urine Culture Urgent
SAW Source: U
Specimen Description:
Date Specimen was Collected: 03/22/24
Time Specimen was Collected: 09:37
03/22/24 10:46
Consult Infectious Disease [INFECTIOUS DISEASE CONSULT] Urgent
Consulting Provider: Bimal Gordillo
Was physician already notified: Yes
Reason for consult: spoke to Lisandra; fever
US Abdomen Complete/Upper Urgent
Comment:
Reason For Exam: fever elevated TBili 4
03/22/24 12:44
Ketorolac [Toradol] 15 mg IV NOW STA
03/22/24 14:07
Ertapenem [Invanz] 1,000 mg 0.9% Sodium Chloride [Nss] 50 ml IV NOW
03/22/24 15:04
Add On- LAB Urgent
Tests Added?: direct bilirubin
03/22/24 16:00
Ertapenem [Invanz] 1,000 mg 0.9% Sodium Chloride [Nss] 50 ml IV Q24H
Abnormal Lab Results
03/22/24 03/22/24
09:02 09:40
WBC 15.2 H 10^3/uL
(4.8-10.8)
Abs Immat Gran (auto) 0.1 H 10^3/uL
(0-0.05)
Absolute Neuts (auto) 13.5 H 10^3/uL
(1.4-6.5)
Absolute Lymphs (auto) 0.6 L 10^3/uL
(1.2-3.4)
Absolute Monos (auto) 0.9 H 10^3/uL
(0.1-0.6)
Immature Gran % 0.6 H %
(0-0.5)
Neutrophils % 89.0 H %
(42.2-75.2)
Lymphocytes % 4.2 L %
(20.5-51.1)
Creatinine 1.4 H mg/dL
(0.7-1.3)
Glucose 115 H mg/dl
(70-99)
Total Bilirubin 4.0 H mg/dl
(0.2-1.3)
Urine Ketones 2+ A
(Negative)
Ur Occult Blood Reflex 3+ A
(Negative)
Urine Bilirubin 1+ A
(Negative)
Urine Urobilinogen 3+ A
(Neg - 1+)
Leukocyte Esterase Rfl 1+ A
(Negative)
Urine RBC 7-10 A /HPF
(0-2)
Urine WBC (Reflex) 11-15 A /HPF
(0-5)
Urine Bacteria (Reflex) Few A
(Negative)
Urine Albumin (Reflex) 1+ A
(Neg - Trace)
03/22/24 09:02
03/22/24 09:02
Vital Signs
Initial and Last Documented VS:
Initial Vital Signs
Temp Pulse Resp BP Pulse Ox
37.9 C 115 18 139/80 95
03/22/24 07:45 03/22/24 07:45 03/22/24 07:45 03/22/24 07:45 03/22/24 07:45
Last Documented Vital Signs
Temp Pulse Resp BP Pulse Ox
37.6 C 74 13 125/74 94
03/22/24 11:46 03/22/24 12:30 03/22/24 12:30 03/22/24 12:00 03/22/24 12:30
*Critical Care Note
Total Time (30-74mins, 75-104mins- exclusive of procedures): Not Applicable
ED Attending Note
-
Portions of this chart may have been created with voice recognition software.� Occasional wrong word or��sound alike� substitutions may have occurred due to the inherent limitations of voice recognition software.
Discharge Plan
Departure
Patient Disposition: Admit
Date of Disposition: 03/22/24
Time of Disposition: 13:42
Presentation/result/management discussed w/ accepting MD/DO: Hospitalist
Discharge Problem:
Urinary tract infection due to extended-spectrum beta lactamase (ESBL) producing Escherichia coli
Prescriptions:
No Action
allopurinol 300 MG tablet
300 mg PO QPM
rosuvastatin [Crestor] 10 MG tablet
10 mg PO QPM
tamsulosin [Flomax] 0.4 mg Capsule
0.4 mg PO BID
methen-sod phos-meth blue-hyos [Urogesic-Blue] 81.6-40.8-0.12 mg Tablet
1 tab PO BID
Patient Comments:
02/07/24-PATIENT HAS FREE SAMPLES
methenamine hippurate [Hiprex] 1 gram Tablet
1 g PO BID
Referrals:
Jag Vicente, [Family Provider] -
Interventions
Interventions:
*Risk Screen - Suicide Last Done: 03/22/24 07:45
*General Assessment Last Done: 03/22/24 07:45
*Neglect/Abuse Screening Last Done: 03/22/24 07:45
ED-Male Genitourinary Assessment Last Done: 03/22/24 08:37
Discharge Date and Time
Print Language: DANISH
[2024-03-22 08:37] VITALS: BMI 27.6
[2024-03-22 08:53] VITALS: BP 167/95
[2024-03-22 09:00] VITALS: BP 135/87
[2024-03-22] MEDS: FLOMAX 0.4 MG PO ×2 (09:08→20:03)
[2024-03-22] MEDS: NSS 1000 IV ×2 (09:08→20:07)
[2024-03-22] MEDS: TYLENOL 1000 MG PO (09:08)
[2024-03-22 09:11] LABS: % Basophils 0.3 % (0-2); % Eosinophils 0.1 % (0-6); % Immature Granulocytes 0.6 % (0-0.5); % Lymphocytes 4.2 % (20.5-51.1); % Monocytes 5.8 % (1.7-9.3); Absolute Immature Granulocytes 0.1 10^3/uL (0-0.05); Absolute Lymphocytes 0.6 10^3/uL (1.2-3.4); Absolute Monocytes 0.9 10^3/uL (0.1-0.6); Absolute Neutrophils 13.5 10^3/uL (1.4-6.5); Hematocrit 42.2 % (39.0-52.0); Hemoglobin 14.1 g/dL (13.0-18.0); Mean Corp Hgb Conc. 33.4 g/dL (33.0-37.0); Mean Corpuscular Hgb 29.7 pg (27.0-31.0); Mean Platelet Volume 9.5 fL (7.4-10.4); Nucleated Red Blood Cells % 0 % (-); Platelet Count 221 10^3/uL (130-400); Red Blood Cell Count 4.74 10^6/uL (4.70-6.10); Red Cell Dist. Width 13.2 % (11.5-14.5); White Blood Cell Count 15.2 10^3/uL (4.8-10.8)
[2024-03-22 09:25] LABS: Lactic Acid 0.8 mmol/L (0.7-2.0)
[2024-03-22 09:27] LABS: ALT (SGPT) 31 U/L (0-50); AST (SGOT) 29 U/L (17-59); Albumin 4.4 g/dl (3.5-5.0); Alkaline Phosphatase 103 U/L (38-126); Blood Urea Nitrogen 15 mg/dl (9-20); Calcium 9.3 mg/dl (8.4-10.2); Carbon Dioxide 26 mmol/L (22-30); Chloride 100 mmol/L (98-107); Estimated Creatinine Clearance 56 ml/min; Glucose 115 mg/dl (70-99); Potassium 4.3 mmol/L (3.5-5.1); Sodium 136 mmol/L (135-145); Total Protein 7.5 g/dl (6.3-8.2); eGFR 56.48
[2024-03-22 10:20] LABS: Urine Albumin 1+ (Neg - Trace); Urine Bilirubin 1+ (Negative); Urine Character Clear (Clear); Urine Glucose Negative (Negative); Urine Ketone 2+ (Negative); Urine Leukocyte 1+ (Negative); Urine Nitrite Negative (Negative); Urine Occult Blood 3+ (Negative); Urine Urobilinogen 3+ (Neg - 1+)
[2024-03-22 10:48] LABS: Urine Bacteria Few (Negative); Urine Squamous Cell 0-2 /LPF (Few)
[2024-03-22 11:45] VITALS: BP 113/74
[2024-03-22 12:00] VITALS: BP 125/74
[2024-03-22] MEDS: TORADOL 15 MG IV (12:47)
--- NOTE | 2024-03-22 13:53 | CON.ID ---
Consultation
-
Date/Time Consultation Requested: 03/22/2024 1046
Date/Time Consultation Performed: 03/22/2024 1300
Requesting Provider: Ulysses
Performing Provider: Duy
Reason for Consultation: UTI
Chief Complaint / Past History
History of Present Illness
Mehran Bailey is a 62-year-old man with a significant past medical history of BPH being evaluated regarding UTI. History is obtained from chart review, along with patient interview.
Patient reports that he is been using a Kapoor catheter for approximately the past 5 to 6 weeks. He is followed by Dr. Fong here at [facility]. Because of significant BPH he was sent to see Dr. Avitia who performed a transperineal
prostate biopsy approximately 10 days ago. At that time he also had his catheter changed.
The patient reports that he was doing well until yesterday when he developed chills, he also developed some cough along with a significant myalgias and arthralgias. He additionally developed intermittent urinary spasms and fever at home. He was
into see Urology yesterday who prescribed him fosfomycin, but a culture was obtained before initiation of antibiotics. Despite taking the fosfomycin he has continued to feel ill and presented to the emergency room for further evaluation. Here, he
was noted to have a low-grade temperature 100.2,, along with a elevated white count.
Infectious Diseases is asked to comment upon further workup and antibiotic management.
Past History
Additional Past Medical History:
Dyslipidemia
Rheumatoid arthritis
BPH
Tinnitus
Additional Past Surgical History:
Transperineal prostate biopsy
Deviated septum surgery
Allergy History:
No Known Allergies Allergy (Verified 03/22/24 07:45)
Medications Reviewed: Yes
Current Antibiotics:
Fosfomycin
Social History
Tobacco: Non-Smoker
Alcohol: Occasional
Drug: None
Personal:
Living: With Family
Employment: Employed
Family History
Family History: Not Pertinent
Review of Systems
Vital Signs
Temp Pulse Resp BP Pulse Ox
99.6 F 74 13 125/74 94
03/22/24 11:46 03/22/24 12:30 03/22/24 12:30 03/22/24 12:00 03/22/24 12:30
Physical Exam
Physical Exam
Constitutional: No Acute Distress, Comfortable and Non-toxic
Eyes: Pupils Equal, Pupils Round, No Conjunctival Hemorrhage and Sclera Anicteric
Oral: No Thrush and No Ulcers
Cardiovascular: S1/S2; Negative S3/S4
Pulmonary: Clear; Negative Wheezes, Rales or Rhonchi
Gastrointestinal: Soft, Non Tender, Non Distended and Normal Bowel Sounds
Genito-Urinary: Negative CVA Tenderness
Extremities: Negative Edema, Cyanosis or Erythema
Skin: Warm and Dry; Negative Rash or Jaundice
Neurological: Awake, Alert and Oriented; Negative Meningeal Signs
Psychological: Calm
Lab / Diagnostic Study Results
03/22/24 09:02
03/22/24 09:02
Abs Immat Gran (auto) 0.1 10^3/uL (0-0.05) H 03/22/24 09:02
Absolute Neuts (auto) 13.5 10^3/uL (1.4-6.5) H 03/22/24 09:02
Absolute Lymphs (auto) 0.6 10^3/uL (1.2-3.4) L 03/22/24 09:02
Absolute Monos (auto) 0.9 10^3/uL (0.1-0.6) H 03/22/24 09:02
Absolute Basos (auto) 0.0 10^3/uL (0-0.2) 03/22/24 09:02
Immature Gran % 0.6 % (0-0.5) H 03/22/24 09:02
Neutrophils % 89.0 % (42.2-75.2) H 03/22/24 09:02
Lymphocytes % 4.2 % (20.5-51.1) L 03/22/24 09:02
Monocytes % 5.8 % (1.7-9.3) 03/22/24 09:02
Eosinophils % 0.1 % (0-6) 03/22/24 09:02
Basophils % 0.3 % (0-2) 03/22/24 09:02
Lactic Acid 0.8 mmol/L (0.7-2.0) 03/22/24 09:02
Ur Squamous Epith Cells 0-2 /LPF (Few) 03/22/24 09:40
Microbiology Results
Micro:
03/22/24:40 Urine Culture - Pending
Urine
03/22/24 09: Influenza Types A & B (KIKA) - Final
Nasal Swab Negative for Influenza A & B, NAAT
Negative results must be combined with clinical observations
and patient history.
Nucleic Acid Amplification test (NAAT)performed on the
[employer] NOW platform.
03/22/24 09:02 Blood Culture - Pending
Blood/Venous
03/22/24 09: Blood Culture - Pending
Blood/Venous
Imaging:
03/22/2024 Abdominal ultrasound: Diffuse fatty infiltration of the liver noted, but normal flow in the portal and hepatic veins. Spleen is normal. Gallbladder is well-visualized and normal. No dilatation of the common or intrahepatic ducts.
Please see full dictation for additional detail.
Assessment / Plan
Suspected complicated urinary tract infection (CAUTI)
-Recent Hx of ESBL E. coli (02/03/2024)
Leukocytosis
Fever (low-grade)
Recent transperineal prostate biopsy
Hyperbilirubinemia
Dyslipidemia
Rheumatoid arthritis
BPH
Tinnitus
Recommendations:
Given fever, leukocytosis and elevated bilirubin, there is concern for more invasive disease at this time.
Based upon prior recent cultures, would cover for possible ESBL E. coli (or other MDRO) with ertapenem 1 g IV every 24 hours.
A urine culture has been sent to [facility] yesterday; will await results.
Urine culture has also been obtained here; await results.
Monitor blood cultures.
Follow white count and temperature curve.
Further recommendations as additional data is returned.
At patient's request, the case was discussed via telephone (in the presence of the patient) with the patient's friend who is an ID physician in [facility]
Care Review
Plan reviewed with: Physician (ER Physician)
[2024-03-22] MEDS: INVANZ 60 MG IV (14:47)
--- NOTE | 2024-03-22 15:06 | HPS.HSE ---
Addendum entered and electronically signed by LASHAY Feliz 03/22/24 16:41:
Cauti sepsis add on
pt was given Tobramycin injection at urology office per Dr lowe
- may consider Ct abd/pelvis with contrast to see for Abscess
Original Note:
Family Physician
-
Family Physician: Jag Vicente
Chief Complaint
-
Temperature 101.8, urinary spasms, leakage around Kapoor catheter
History of Present Illness
62-year-old male reports he has been using a Kapoor catheter for approximately 5 to 6 weeks is being followed by Dr. Lowe from urology secondary to significant BPH. He had a transperineal prostate biopsy approximately [address] Avitia
and had catheter change approximately March 12, 2024. For the past 10 days he reports hourly he has urge to go to the bathroom and urine leaks out around the penile shaft. He is getting constant urinary spasms he is on uro-/MP which turns his
urine blue.
The patient reports he developed chills along with cough, myalgias, arthralgias urinary spasms and intermittent fever at home but reported 101.8 on arrival in the ER however documented 100.2. He was seen by urology yesterday 03/21/2024 and prescribed
fosfomycin and received a single injection possibly Rocephin. He states they did send off a urine culture. Despite taking the fosfomycin he reports he still feels currently ill. He has noted with WBC count of 15.2 with left shift with temp of
99.6F in the ER. He has past medical history of HLD, BPH, GERD, colonic polyps benign age 60, gout, HLD, fatty liver
Medical History
Past Medical History
Past Medical History: Reports Other
Additional Past Medical History:
HLD
Fatty liver
BPH
GERD,
colonic polyps benign age 60
gout
HLD
Past Surgical History: Reports Other
Additional Past Surgical History:
Varicocele repair 816
Bilateral inguinal hernia repair
Bilateral upper lower blepharoplasty
Colonoscopy age 50, age 68 with benign polypectomy x 2�family history father carcinoid cancer large intestine
Social History
Tobacco: Non-smoker
Alcohol: Occasional
Drug: None
Personal:
Living: With Family
Employment: Employed ([employer])
Family History
Family History: Other (Father carcinoid cancer large intestine , mother history of CABG, pelvic fracture, failure to thrive disease, 1 sister 1 brother alcohol abuse)
Allergies / Home Medications
Allergies reflects when Allergies were last updated in [email or web address].
Home Medications with original date entered in [email or web address]
Allergy/Medication List:
Allergies
Allergy/AdvReac Type Severity Reaction Status Date / Time
No Known Allergies Allergy Verified 03/22/24 07:45
Home Medications
allopurinol 300 mg tablet 300 mg PO QPM Gout 04/22/21
rosuvastatin 10 mg tablet (Crestor) 10 mg PO QPM High Cholesterol 04/22/21
methenamine 81.6 mg-sod phos 40.8 mg-methylene blue 0.12mg-hyos tablet (Urogesic-Blue) 1 tab PO BID Urinary Issue 02/07/24
tamsulosin 0.4 mg capsule (Flomax) 0.4 mg PO BID Urinary Issue 02/07/24
methenamine hippurate 1 gram tablet 1 g PO BID 03/22/24
Review of Systems
-
History Source: Patient and Family ( at bedside)
A 12 point ROS was completed and negative except as noted: Yes
Constitutional: Reports Fever, Fatigue and Chills
EENT: Denies Sore Throat or Runny Nose
Respiratory: Denies Cough or Trouble Breathing
Cardiac: Denies Chest Pain, Diaphoresis, Palpitations or Syncope
Abdomen/GI: Denies Abdominal Pain, Nausea, Vomiting, Diarrhea, Constipated, Bloody Stools or Black Stools
: Reports Frequency (Urinary leakage hourly around Kapoor catheter), Incontinence (Around Kapoor catheter) and Kapoor (Present on admission); Denies Urgency or Dark Urine
Musculoskeletal: Denies Joint Pain or Edema
Skin: Denies Itching or Rash
Neurological: Denies Dizzy, Headache or Weakness
Endocrine: Reports No Symptoms
Hematologic/Lymphatic: Reports No Symptoms
Psych: Reports Calm
Physical Exam
Vital Signs
Vital Signs
Temp Pulse Resp BP Pulse Ox
99.6 F 74 13 125/74 94
03/22/24 11:46 03/22/24 12:30 03/22/24 12:30 03/22/24 12:00 03/22/24 12:30
Physical Exam
General: Conversant; No Fever or Chills
HEENT: NormoCephalic, Anicteric, Moist mucous membranes, PERRLA, [place] Conjunctivae and No Ptosis
Respiratory: Clear; No Wheezes, Rales or Rhonchi
Cardiac: S1/S2 and Regular Rhythm; No Murmur, Rub, Gallop or Peripheral Edema
Breast: Deferred by me
GI: Soft, Non Tender, Non Distended, Normal Bowel Sounds and No Hepatosplenomegaly
Rectal: Deferred by Provider
Genito-urinary: No costovertebral tender and Kapoor (Present on admission)
Musculoskeletal: No Clubbing, No Cyanosis and No Edema
Skin: Warm and Dry; No Rash or Jaundice
Neuro: AO x 3, No Motor Deficits, Nonfocal/grossly intact and No Sensory Deficits; No Slurred Speech, Facial Droop, Tremors or Sedated
Psych: Calm
Laboratory Results
-
03/22/24 09:02
03/22/24 09:02
Laboratory Results
Lactic Acid 0.8 mmol/L (0.7-2.0) 03/22/24 09:02
Total Bilirubin 4.0 mg/dl (0.2-1.3) H 03/22/24 09:02
AST 29 U/L (17-59) 03/22/24 09:02
ALT 31 U/L (0-50) 03/22/24 09:02
Alkaline Phosphatase 103 U/L (38-126) 03/22/24 09:02
Data Reviewed
-
Lab Data: Labs Reviewed by me
Impression/Plan
-
Impression/plan:
Admit to MedSurg
# Sepsis secondary to CAUTI
-#Urinary leakage around Kapoor catheter secondary to improper size/urinary retention
#Hx ESBL E. coli 02/03/2024
#Status post transperineal prostate biopsy recent
Reported fever low-grade 100.2, WBC 15.6 with left shift
Kapoor catheter change approximately March 12, 2024
Recent fosfomycin yesterday 03/21/2024
-Change Kapoor catheter secondary to urinary leakage hourly out of penile urethra will upgrade size of cath
-Consult ID�seen by Dr. Gordillo at bedside
-IV NSS 100 cc/h
-Tylenol as needed fever
-Follow urine culture, blood cultures x 2
-IV Invanz every 24 hours due to prior cultures ESBL January
-Follow CBC, CMP
Abdominal ultrasound: Diffuse fatty infiltration of the liver
CXR:minimal linear interstitial airway disease at both lung bases more likely reflecting subsegmental atelectasis than interstitial pneumonia
#Possible CKD stage IIIa
Creatinine 1.4, prior 1.3 on 02/03/2024
-IV NSS
-Follow BMP
#Hyperbilirubinemia�unclear
T. bili 4 normal LFTs
-Check indirect bilirubin
#GERD
-No current medication
#HLD
-Fatty liver on abdominal ultrasound
-Continue Crestor 10 mg every afternoon
#Gout
-Continue allopurinol
#Hx colonic polyps on colonoscopy benign at age 60
DVT prophylaxis
Subcu heparin
Full code
[2024-03-22 15:38] LABS: Direct Bilirubin 0.8 mg/dl (0.0-0.4)
--- NOTE | 2024-03-22 16:54 | CON.MD ---
Consultation - Medical
-
see dictated note
pt with long of BPH/elevated psa
recent urinary retention- with cath developed esbl UTI
treated with cephalosporin- f/u cx was negative
failed TOV- had MRI with ? cancer
seen at [facility]- had transperineal bx- negative for ca- scheduled for [facility] end of mar
now readmitted with fever and bladder spasms- suspect recurrent UTI
pt appears stable on exam
plan
exchange pastor
detrol and prn valium
CT scan if no improvement in 24-48hrs-
ID on board- await cx's
[2024-03-22] MEDS: DETROL LA 4 MG PO (18:03)
[2024-03-22] MEDS: VALIUM INJECTION 2.5 MG IV ×2 (18:36→22:26)
--- NOTE | 2024-03-22 19:30 | W.PN.UPDATE ---
Update Note
Progress Note Update
This is an addendum to the H&P written by Julieth Ye on 03/22/2024. Patient seen and examined independently with [employer].
63-year-old male past medical history of BPH with urinary retention status post Kapoor catheter 6 weeks ago, transperineal prostate biopsy 10 days ago, hyperlipidemia, GERD, gout, presenting with urinary urgency/bladder spasms, urine leaking around
the catheter and fever. He received fosfomycin and tobramycin in the urology office yesterday.
Labs show elevated total bilirubin of 4 with direct bilirubin 0.8. Leukocytosis.
Patient clinically septic secondary to catheter associated UTI.
IV fluids. Check urine, blood cultures. ID was consulted and recommended ertapenem. Kapoor catheter to be exchanged. Urology recommended potential CT abdomen pelvis to evaluate for prostatic abscess in 1 to 2 days if no clinical improvement.
[2024-03-22] MEDS: TYLENOL 650 MG PO (20:02)
[2024-03-22] MEDS: CRESTOR 10 MG PO (20:03)
[2024-03-22] MEDS: HEPARIN SC (20:09)
[2024-03-22 20:47] VITALS: BP 126/75
[2024-03-23] VITALS (7 sets, daily range): BP systolic 108–146; BP diastolic 62–85; BMI 27.6; BMI 27.8
[2024-03-23] MEDS: VALIUM INJECTION 2.5 MG IV ×2 (04:43→21:01)
[2024-03-23] MEDS: NSS 1000 IV ×2 (06:42→15:52)
[2024-03-23 07:07] LABS: % Basophils 0.4 % (0-2); % Eosinophils 0.9 % (0-6); % Immature Granulocytes 0.5 % (0-0.5); % Lymphocytes 8.8 % (20.5-51.1); % Monocytes 7.7 % (1.7-9.3); % Neutrophils 81.7 % (42.2-75.2); Absolute Eosinophils 0.1 10^3/uL (0-0.7); Absolute Lymphocytes 0.7 10^3/uL (1.2-3.4); Absolute Monocytes 0.6 10^3/uL (0.1-0.6); Absolute Neutrophils 6.6 10^3/uL (1.4-6.5); Hematocrit 36.5 % (39.0-52.0); Hemoglobin 12.1 g/dL (13.0-18.0); Mean Corp Hgb Conc. 33.2 g/dL (33.0-37.0); Mean Corpuscular Hgb 29.7 pg (27.0-31.0); Mean Corpuscular Volume 89.7 fL (80.0-94.0); Nucleated Red Blood Cells % 0 % (-); Platelet Count 207 10^3/uL (130-400); Red Blood Cell Count 4.07 10^6/uL (4.70-6.10); Red Cell Dist. Width 13.2 % (11.5-14.5); White Blood Cell Count 8.1 10^3/uL (4.8-10.8)
[2024-03-23 07:34] LABS: ALT (SGPT) 30 U/L (0-50); AST (SGOT) 34 U/L (17-59); Albumin 3.3 g/dl (3.5-5.0); Alkaline Phosphatase 104 U/L (38-126); Blood Urea Nitrogen 15 mg/dl (9-20); Calcium 8.3 mg/dl (8.4-10.2); Carbon Dioxide 23 mmol/L (22-30); Chloride 106 mmol/L (98-107); Estimated Creatinine Clearance 65 ml/min; Glucose 106 mg/dl (70-99); Potassium 4.1 mmol/L (3.5-5.1); Sodium 137 mmol/L (135-145); Total Bilirubin 1.4 mg/dl (0.2-1.3); eGFR > 60.00
--- NOTE | 2024-03-23 08:31 | W.PN.HOSP.TC ---
Today's Communication/Plan
-
Continue antibiotics
Continue symptomatic care with Valium/Detrol
Follow urine culture/blood culture report
Assessment / Plan
Assessment / Plan
# Sepsis secondary to CAUTI
# Urinary leakage around Kapoor catheter secondary to improper size/urinary retention
# Hx ESBL E. coli 02/03/2024
# Status post transperineal prostate biopsy recently
-Kapoor catheter upsized in ER by urology services
-Patient having significant spasms and associated urine leakage around the urethra
-Urine culture from previous visit has grown ESBL E. coli
-ID consulted and following along
-Currently patient on ertapenem, follow-up urine/blood culture report
-Urology planning to do repeat imaging if clinically not improved
-Valium/Detrol provided for symptomatic bladder spasm
# Azotemia
-Minimal creatinine elevation, normalized
-Continue follow up
#Hyperbilirubinemia
�unclear
-T. bili 4 normal LFTs, trending down.
#GERD
-No current medication
#HLD
-Fatty liver on abdominal ultrasound
-Continue Crestor 10 mg every afternoon
#Gout
-Continue allopurinol
#Hx colonic polyps on colonoscopy benign at age 60
DVT prophylaxis Subcu heparin
Full code
Total time spent : 53 mins
I personally saw and examined the patient.
I have reviewed all diagnostic interpretations and treatment plans as written.
Time includes patient management by me, time spent at the patients bedside, time to review lab and imaging results, discussing patient care, documentation in the medical record, and time spent with the family or caregiver and discussing care plan
with RN/Consultants.
Anticipated Discharge: > 48 hours
Subjective/Interval History
-
Date of Service: March 23, 2024
continues to have bladder spasm
some drainage around penile tip
Objective Data
-
Labs:
Laboratory Results
03/23/24
06:41
WBC 8.1
Hgb 12.1 L
Hct 36.5 L
Plt Count 207
Sodium 137
Potassium 4.1
Chloride 106
Carbon Dioxide 23
BUN 15
Creatinine 1.2
Glucose 106 H
Calcium 8.3 L
Total Bilirubin 1.4 H D
AST 34
ALT 30
Alkaline Phosphatase 104
Vital Signs:
Vital Signs
Temp Pulse Resp BP Pulse Ox
98.6 F 81 19 124/62 97
03/23/24 04:05 03/23/24 04:00 03/23/24 04:00 03/23/24 04:00 03/22/24 12:40
Review of Systems
-
Respiratory: Reports No Symptoms
Cardiac: Reports No Symptoms
Abdomen/GI: Reports No Symptoms
Genitourinary: Reports Dysuria
Physical Exam
-
General: No Apparent Distress and Comfortable
HEENT: Negative Oxygen
Respiratory: Clear to Auscultation
Cardiac: Regular Rhythm and S1/S2; Negative Murmur or Rub
GI: Soft, Nontender and Nondistended
Genito-urinary: Kapoor (green urine)
Musculoskeletal: No Edema
Neuro: Awake, Alert, Oriented, No Motor Deficits and Nonfocal/Grossly Intact
Psych: Calm
[2024-03-23] MEDS: DETROL LA 4 MG PO (08:45)
[2024-03-23] MEDS: FLOMAX 0.4 MG PO ×2 (08:45→20:54)
[2024-03-23] MEDS: HEPARIN 5000 UNITS SC ×2 (08:48→20:54)
[2024-03-23] MEDS: TYLENOL 650 MG PO ×2 (09:08→21:20)
--- NOTE | 2024-03-23 12:21 | W.PN.URO.CBU ---
Today's Communication / Plan
-
no changes expect spasms do not upsize pastor
Assessment / Plan
-
uti cath relayted but cannot remove pastor due to massive prostate. pt responding to iv abs leaving little chance of this being prostatic abscess Continue present care
Diagnosis
-
Date of Service: March 23, 2024
-
Patient Diagnosis:
urinary retention with fevr chills and massive bph had -s pastor with cauti and h/o esbl
Post Op Day:
Subjective
-
much better today
Objective
-
Vital Signs
Temp Pulse Resp BP Pulse Ox
99 F 79 22 121/69 94
03/23/24 08:43 03/23/24 11:00 03/23/24 11:00 03/23/24 08:43 03/23/24 08:43
Laboratory Results
03/23/24 06:41
03/23/24 06:41
Review of Systems
-
: Difficulty Voiding and Urgency
Physical Exam
-
General - well developed, well nourished, no acute distress
Chest - clear bilaterally
Abdomen - soft, non-tender, positive bowel sounds, no CVAT, no incisional pain or distention
Genitalia - normal
Rectal - normal
Skin - warm & dry with no rash
Neuro - AOx3, no motor deficits
Extremities - no clubbing, no cyanosis, no edema
Incision - clean, dry
Dressing - clean, dry, intact
Care Review
Data Reviewed
Discussed with: Hospitalist and Nursing
--- NOTE | 2024-03-23 13:53 | W.PN.ID1 ---
Date of Service
Date of Service: March 23, 2024
Today's Communication
c/w ertapenem
Assessment / Plan
Suspected complicated urinary tract infection (CAUTI)
-Recent Hx of ESBL E. coli (02/03/2024)
Leukocytosis
Fever (low-grade)
Recent transperineal prostate biopsy
Hyperbilirubinemia
Dyslipidemia
Rheumatoid arthritis
BPH
Tinnitus
Recommendations:
Based upon prior recent cultures, would cover for possible ESBL E. coli (or other MDRO) with ertapenem 1 g IV every 24 hours.
A urine culture has been sent to [facility] 03/22; we await results.
Urine culture has also been obtained here and is negative likely due to prior to arrival gentamicin and fosfomycin
Monitor blood cultures - no growth to date
Follow white count and temperature curve.
Kapoor recently exchanged
Further recommendations as additional data is returned.
At patient's request, the case was discussed via telephone (in the presence of the patient) with the patient's friend who is an ID physician in [facility]
Chief Complaint
-: UTI
Subjective / Review of Systems
afebrile
bp stable
tolerating current therapies
Vital Signs / Physical Exam
Vital Signs
Vital Signs
Temp Pulse Resp BP Pulse Ox
99 F 79 22 121/69 94
03/23/24 08:43 03/23/24 11:00 03/23/24 11:00 03/23/24 08:43 03/23/24 08:43
Physical Exam
Constitutional: No Acute Distress
Cardiovascular: Regular Rate and S1/S2; Negative Murmur or Rub
Pulmonary: Clear and Symmetric; Negative Wheezes or Rales
Gastrointestinal: Soft, Non Tender, Non Distended and Normal Bowel Sounds
Skin: Warm and Dry; Negative Rash or Jaundice
Objective Data
Lab Data
Lab Results
03/23/24 06:41
03/23/24 06:41
Estimated Creat Clear 65 ml/min 03/23/24 06:41
Lactic Acid 0.8 mmol/L (0.7-2.0) 03/22/24 09:02
Total Bilirubin 1.4 mg/dl (0.2-1.3) H D 03/23/24 06:41
AST 34 U/L (17-59) 03/23/24 06:41
ALT 30 U/L (0-50) 03/23/24 06:41
Alkaline Phosphatase 104 U/L (38-126) 03/23/24 06:41
Most recent labs reviewed.
Micro Results:
03/22/24 09:40 Urine Culture - Final
Urine NO GROWTH
03/22/24 09:02 Blood Culture - Preliminary
Blood/Venous No Growth in 24 hours- Final report to follow
03/22/24 09:02 Blood Culture - Preliminary
Blood/Venous No Growth in 24 hours- Final report to follow
03/22/24 09:02 Influenza Types A & B (KIKA) - Final
Nasal Swab Negative for Influenza A & B, NAAT
Negative results must be combined with clinical observations
and patient history.
Nucleic Acid Amplification test (NAAT)performed on the
[employer] platform.
Imaging:
03/22/2024 Abdominal ultrasound: Diffuse fatty infiltration of the liver noted, but normal flow in the portal and hepatic veins. Spleen is normal. Gallbladder is well-visualized and normal. No dilatation of the common or intrahepatic ducts.
Please see full dictation for additional detail.
[2024-03-23] MEDS: INVANZ 60 MG IV (14:11)
[2024-03-23] MEDS: CRESTOR 10 MG PO (20:54)
[2024-03-23] MEDS: MIRALAX 17 GRAMS PO (21:51)
[2024-03-24] VITALS (7 sets, daily range): BP systolic 107–143; BP diastolic 64–89
[2024-03-24] MEDS: NSS 1000 IV (01:04)
[2024-03-24 07:56] LABS: % Basophils 0.5 % (0-2); % Eosinophils 2.8 % (0-6); % Immature Granulocytes 0.5 % (0-0.5); % Lymphocytes 14.8 % (20.5-51.1); % Monocytes 10.9 % (1.7-9.3); % Neutrophils 70.5 % (42.2-75.2); Absolute Eosinophils 0.2 10^3/uL (0-0.7); Absolute Monocytes 0.7 10^3/uL (0.1-0.6); Absolute Neutrophils 4.6 10^3/uL (1.4-6.5); Hematocrit 37.2 % (39.0-52.0); Hemoglobin 12.2 g/dL (13.0-18.0); Mean Corp Hgb Conc. 32.8 g/dL (33.0-37.0); Mean Corpuscular Hgb 29.7 pg (27.0-31.0); Mean Corpuscular Volume 90.5 fL (80.0-94.0); Mean Platelet Volume 9.6 fL (7.4-10.4); Nucleated Red Blood Cells % 0 % (-); Platelet Count 222 10^3/uL (130-400); Red Blood Cell Count 4.11 10^6/uL (4.70-6.10); Red Cell Dist. Width 13.2 % (11.5-14.5); White Blood Cell Count 6.5 10^3/uL (4.8-10.8)
[2024-03-24 08:04] LABS: ALT (SGPT) 35 U/L (0-50); AST (SGOT) 32 U/L (17-59); Albumin 3.2 g/dl (3.5-5.0); Alkaline Phosphatase 123 U/L (38-126); Blood Urea Nitrogen 11 mg/dl (9-20); Calcium 8.3 mg/dl (8.4-10.2); Carbon Dioxide 24 mmol/L (22-30); Chloride 105 mmol/L (98-107); Estimated Creatinine Clearance 65 ml/min; Glucose 117 mg/dl (70-99); Potassium 4.2 mmol/L (3.5-5.1); Sodium 138 mmol/L (135-145); Total Bilirubin 0.8 mg/dl (0.2-1.3); Total Protein 5.8 g/dl (6.3-8.2); eGFR > 60.00
[2024-03-24] MEDS: FLOMAX 0.4 MG PO ×2 (08:27→21:48)
[2024-03-24] MEDS: HEPARIN 5000 UNITS SC ×2 (08:27→21:48)
[2024-03-24] MEDS: DETROL LA 4 MG PO (08:27)
[2024-03-24 08:52] LABS: Hepatitis C Antibody Negative (Negative)
[2024-03-24] MEDS: VALIUM INJECTION 2.5 MG IV (09:31)
[2024-03-24] MEDS: INVANZ 60 MG IV (11:23)
--- NOTE | 2024-03-24 12:25 | W.PN.URO.CBU ---
Today's Communication / Plan
-
NO CHANGES
Assessment / Plan
-
uti cath related but cannot remove pastor due to massive prostate. pt responding to iv abs leaving little chance of this being prostatic abscess Continue present care
Diagnosis
-
Date of Service: March 24, 2024
-
Patient Diagnosis:
Post Op Day:
Patient Diagnosis:
urinary retention with fevr chills and massive bph had -s pastor with cauti and h/o esbl
Post Op Day:
Subjective
-
NO FEVR CHILLS STILL SPASMS BUT LESS INTENSE AND LESS FREQUENT
Objective
-
Vital Signs
Temp Pulse Resp BP Pulse Ox
98.3 F 76 18 107/64 96
03/24/24 11:32 03/24/24 11:32 03/24/24 11:32 03/24/24 11:32 03/24/24 11:32
Laboratory Results
03/24/24 07:17
03/24/24 07:17
Review of Systems
-
: Frequency and Difficulty Voiding
Physical Exam
-
General - well developed, well nourished, no acute distress
Chest - clear bilaterally
Abdomen - soft, non-tender, positive bowel sounds, no CVAT, no incisional pain or distention
Genitalia - normal
Rectal - normal
Skin - warm & dry with no rash
Neuro - AOx3, no motor deficits
Extremities - no clubbing, no cyanosis, no edema
Incision - clean, dry
Dressing - clean, dry, intact
--- NOTE | 2024-03-24 13:24 | W.PN.HOSP.TC ---
Today's Communication/Plan
-
maintain abx per ID
f/u renal function
continue other supportive measures
Assessment / Plan
Assessment / Plan
# Sepsis secondary to CAUTI
# Urinary leakage around Kapoor catheter secondary to improper size/urinary retention
# Hx ESBL E. coli 02/03/2024
# Status post transperineal prostate biopsy recently
-Kapoor catheter upsized in ER by urology services
-Patient having significant spasms and associated urine leakage around the urethra
-Urine culture from previous visit has grown ESBL E. coli
-ID consulted and following along
-Currently patient on ertapenem, follow-up urine/blood culture report - remains NTD
-Urology planning to do repeat imaging if clinically not improved
-Valium/Detrol provided for symptomatic bladder spasm
# Azotemia
-Minimal creatinine elevation, normalized
-Continue follow up
#Hyperbilirubinemia - normalized
-reason unclear
#GERD
-No current medication
#HLD
-Fatty liver on abdominal ultrasound
-Continue Crestor 10 mg every afternoon
#Gout
-Continue allopurinol
#Hx colonic polyps on colonoscopy benign at age 60
DVT prophylaxis Subcu heparin
Full code
Anticipated Discharge: 24 - 48 hours
Subjective/Interval History
-
Date of Service: March 24, 2024
Continues to have some bladder spasms
No hematuria
No abdominal pain/nausea/fever
Objective Data
-
Labs:
Laboratory Results
03/24/24
07:17
WBC 6.5
Hgb 12.2 L
Hct 37.2 L
Plt Count 222
Sodium 138
Potassium 4.2
Chloride 105
Carbon Dioxide 24
BUN 11
Creatinine 1.2
Glucose 117 H
Calcium 8.3 L
Total Bilirubin 0.8
AST 32
ALT 35
Alkaline Phosphatase 123
Vital Signs:
Vital Signs
Temp Pulse Resp BP Pulse Ox
98.3 F 76 18 107/64 96
03/24/24 11:32 03/24/24 11:32 03/24/24 11:32 03/24/24 11:32 03/24/24 11:32
Review of Systems
-
Respiratory: Reports No Symptoms
Cardiac: Reports No Symptoms
Abdomen/GI: Reports No Symptoms
Genitourinary: Reports Dysuria
Physical Exam
-
General: No Apparent Distress and Comfortable
HEENT: Negative Oxygen
Respiratory: Clear to Auscultation
Cardiac: Regular Rhythm and S1/S2; Negative Murmur or Rub
GI: Soft, Nontender and Nondistended
Genito-urinary: Kapoor (clear urine)
Musculoskeletal: No Edema
Neuro: Awake, Alert, Oriented, No Motor Deficits and Nonfocal/Grossly Intact
Psych: Calm
[2024-03-24] MEDS: TYLENOL 650 MG PO ×2 (14:55→22:01)
[2024-03-24] MEDS: CRESTOR 10 MG PO (17:47)
[2024-03-25 03:29] VITALS: BP 137/72
[2024-03-25 06:00] VITALS: BMI 27.1
[2024-03-25] MEDS: TYLENOL 650 MG PO ×2 (06:17→21:48)
[2024-03-25 07:27] VITALS: BP 129/68
[2024-03-25 07:45] LABS: % Basophils 0.3 % (0-2); % Eosinophils 2.5 % (0-6); % Immature Granulocytes 0.3 % (0-0.5); % Lymphocytes 18.3 % (20.5-51.1); % Monocytes 12.5 % (1.7-9.3); % Neutrophils 66.1 % (42.2-75.2); Absolute Eosinophils 0.2 10^3/uL (0-0.7); Absolute Lymphocytes 1.2 10^3/uL (1.2-3.4); Absolute Monocytes 0.8 10^3/uL (0.1-0.6); Absolute Neutrophils 4.3 10^3/uL (1.4-6.5); Hematocrit 38.5 % (39.0-52.0); Hemoglobin 13.2 g/dL (13.0-18.0); Mean Corp Hgb Conc. 34.3 g/dL (33.0-37.0); Mean Corpuscular Hgb 29.9 pg (27.0-31.0); Mean Corpuscular Volume 87.3 fL (80.0-94.0); Mean Platelet Volume 9.9 fL (7.4-10.4); Nucleated Red Blood Cells % 0 % (-); Platelet Count 236 10^3/uL (130-400); Red Blood Cell Count 4.41 10^6/uL (4.70-6.10); Red Cell Dist. Width 12.9 % (11.5-14.5); White Blood Cell Count 6.5 10^3/uL (4.8-10.8)
[2024-03-25 08:28] LABS: ALT (SGPT) 42 U/L (0-50); AST (SGOT) 35 U/L (17-59); Albumin 3.6 g/dl (3.5-5.0); Alkaline Phosphatase 155 U/L (38-126); Blood Urea Nitrogen 14 mg/dl (9-20); Calcium 8.8 mg/dl (8.4-10.2); Carbon Dioxide 26 mmol/L (22-30); Chloride 104 mmol/L (98-107); Estimated Creatinine Clearance 65 ml/min; Glucose 92 mg/dl (70-99); Potassium 4.1 mmol/L (3.5-5.1); Sodium 140 mmol/L (135-145); Total Bilirubin 0.7 mg/dl (0.2-1.3); Total Protein 6.4 g/dl (6.3-8.2); eGFR > 60.00
[2024-03-25] MEDS: FLOMAX 0.4 MG PO ×2 (09:48→21:33)
[2024-03-25] MEDS: HEPARIN 5000 UNITS SC ×2 (09:48→21:34)
[2024-03-25] MEDS: DETROL LA 4 MG PO (09:53)
[2024-03-25 11:10] VITALS: BP 134/92
[2024-03-25] MEDS: INVANZ 60 MG IV (12:15)
[2024-03-25] MEDS: FLUSH (NSS) 1 FLUSH IV (12:16)
--- NOTE | 2024-03-25 12:57 | W.PN.URO.CBU ---
Today's Communication / Plan
-
PER HOSPITALIST
Assessment / Plan
-
uti cath related but cannot remove pastor due to massive prostate. pt responding to iv abs leaving little chance of this being prostatic abscess Continue present care
Diagnosis
-
Date of Service: March 25, 2024
-
Patient Diagnosis:
Post Op Day:
Patient Diagnosis:
Post Op Day:
Patient Diagnosis:
urinary retention with fevr chills and massive bph had -s pastor with cauti and h/o esbl
Post Op Day:
Subjective
-
STILL URGENCY VOIDING AROUND PASTOR
Objective
-
Vital Signs
Temp Pulse Resp BP Pulse Ox
97.5 F 79 18 134/92 96
03/25/24 11:10 03/25/24 11:10 03/25/24 11:10 03/25/24 11:10 03/25/24 11:10
Intake and Output
03/24/24 03/25/24 03/26/24
06:59 06:59 06:59
Intake Total 1680 / 1680 240 / 240
Output Total 1500 / 1500
Balance 180 / 180 240 / 240
Intake:
Oral fluids 1680 / 1680 180 / 180
IV piggybacks 60 / 60
Output:
Urine, Pastor 1500 / 1500
Laboratory Results
03/25/24 06:39
03/25/24 06:39
Review of Systems
-
: Difficulty Voiding and Urgency
Physical Exam
-
General - well developed, well nourished, no acute distress
Chest - clear bilaterally
Abdomen - soft, non-tender, positive bowel sounds, no CVAT, no incisional pain or distention
Genitalia - normal
Rectal - normal
Skin - warm & dry with no rash
Neuro - AOx3, no motor deficits
Extremities - no clubbing, no cyanosis, no edema
Incision - clean, dry
Dressing - clean, dry, intact
--- NOTE | 2024-03-25 14:02 | CM ---
Met with pt at bedside
Pt reports he lives with his in a 2 story home; 2 steps to enter, FF set up
Independent, employed FT, drives
DME - none
SNF/HH - denies past hx
Has ride at discharge
PCP - Jag Vicente
Pharm - [facility] [place]
Plan - anticipate home no needs
--- NOTE | 2024-03-25 15:01 | W.PN.HOSP.TC ---
Today's Communication/Plan
-
await cultures from [facility]
Assessment / Plan
Assessment / Plan
# Sepsis secondary to CAUTI
# Urinary leakage around Kapoor catheter secondary to improper size/urinary retention
# Hx ESBL E. coli 02/03/2024
# Status post transperineal prostate biopsy recently
-Kapoor catheter upsized in ER by urology services
-Patient having significant spasms and associated urine leakage around the urethra
-Urine culture from previous visit has grown ESBL E. coli
-ID consulted and following along
-Currently patient on ertapenem, follow-up urine/blood culture report - remains NTD
-Urology planning to do repeat imaging if clinically not improved
-Valium/Detrol provided for symptomatic bladder spasm
# Azotemia
-Minimal creatinine elevation, normalized
-Continue follow up
#Hyperbilirubinemia - normalized
probably sepsis
-ctm oupt
no ruq pain
#GERD
-No current medication
#HLD
-Fatty liver on abdominal ultrasound
-Continue Crestor 10 mg every afternoon
#Gout
-Continue allopurinol
#Hx colonic polyps on colonoscopy benign at age 60
DVT prophylaxis Subcu heparin
Full code
Anticipated Discharge: Within 24 hours
Subjective/Interval History
-
Date of Service: March 25, 2024
no acute vents
Objective Data
-
Labs:
Laboratory Results
03/25/24
06:39
WBC 6.5
Hgb 13.2
Hct 38.5 L
Plt Count 236
Sodium 140
Potassium 4.1
Chloride 104
Carbon Dioxide 26
BUN 14
Creatinine 1.2
Glucose 92
Calcium 8.8
Total Bilirubin 0.7
AST 35
ALT 42
Alkaline Phosphatase 155 H
Vital Signs:
Vital Signs
Temp Pulse Resp BP Pulse Ox
97.5 F 79 18 134/92 96
03/25/24 11:10 03/25/24 11:10 03/25/24 11:10 03/25/24 11:10 03/25/24 11:10
I&O
03/24/24 03/25/24 03/26/24
06:59 06:59 06:59
Intake Total 1680 / 1680 240 / 240
Output Total 1500 / 1500
Balance 180 / 180 240 / 240
Review of Systems
-
History Source: Patient
All other systems: Not reviewed unless documented
Physical Exam
-
General: No Apparent Distress and Comfortable
HEENT: Negative Oxygen
Respiratory: Clear to Auscultation
Cardiac: Regular Rhythm and S1/S2; Negative Murmur or Rub
GI: Soft, Nontender and Nondistended
Genito-urinary: Kapoor (clear urine)
Musculoskeletal: No Edema
Neuro: Awake, Alert, Oriented, No Motor Deficits and Nonfocal/Grossly Intact
Psych: Calm
Data Reviewed
-
Ultrasound: Report Reviewed by me
Labs: Labs Reviewed by me
[2024-03-25 15:31] VITALS: BP 110/70
--- NOTE | 2024-03-25 15:39 | W.PN.ID1 ---
Date of Service
Date of Service: March 25, 2024
Today's Communication
Continue antibiotics. Await outpatient cultures.
Assessment / Plan
Suspected complicated urinary tract infection (CAUTI)
-Recent Hx of ESBL E. coli (02/03/2024)
Leukocytosis
Fever (low-grade)
Recent transperineal prostate biopsy
Hyperbilirubinemia
Dyslipidemia
Rheumatoid arthritis
BPH
Tinnitus
Recommendations:
Based upon prior recent cultures, would cover for possible ESBL E. coli (or other MDRO) with ertapenem 1 g IV every 24 hours.
A urine culture has been sent to [facility] 03/22; we await results. Preliminary results indicate recovery of GNR's.
Urine culture has also been obtained here and is negative likely due to prior to arrival gentamicin and fosfomycin
Monitor blood cultures - no growth to date
Follow white count and temperature curve.
Kapoor recently exchanged
I anticipate home IV antibiotics given the possibility of prostatitis. Will place PICC line.
Further recommendations as additional data is returned.
����������������������������������������������������������
Chief Complaint
-: UTI
Subjective / Review of Systems
Patient seen and examined. Reports some improvement in urinary leakage. Less spasms are noted.
Vital Signs / Physical Exam
Vital Signs
Vital Signs
Temp Pulse Resp BP Pulse Ox
97.9 F 79 18 110/70 97
03/25/24 15:31 03/25/24 15:31 03/25/24 15:31 03/25/24 15:31 03/25/24 15:31
Physical Exam
Constitutional: No Acute Distress
Cardiovascular: Regular Rate and S1/S2
Pulmonary: Clear and Symmetric; Negative Wheezes or Rales
Gastrointestinal: Soft, Non Tender, Non Distended and Normal Bowel Sounds
Genito-Urinary: Kapoor
Skin: Warm and Dry; Negative Rash or Jaundice
Objective Data
Lab Data
Lab Results
03/25/24 06:39
03/25/24 06:39
Estimated Creat Clear 65 ml/min 03/25/24 06:39
Lactic Acid 0.8 mmol/L (0.7-2.0) 03/22/24 09:02
Total Bilirubin 0.7 mg/dl (0.2-1.3) 03/25/24 06:39
AST 35 U/L (17-59) 03/25/24 06:39
ALT 42 U/L (0-50) 03/25/24 06:39
Alkaline Phosphatase 155 U/L (38-126) H 03/25/24 06:39
Most recent labs reviewed.
Micro Results:
03/22/24 09:02 Blood Culture - Preliminary
Blood/Venous No Growth in 72 hours- Final report to follow
03/22/24 09:02 Blood Culture - Preliminary
Blood/Venous No Growth in 72 hours- Final report to follow
03/22/24 09:40 Urine Culture - Final
Urine NO GROWTH
03/22/24 09:02 Influenza Types A & B (KIKA) - Final
Nasal Swab Negative for Influenza A & B, NAAT
Negative results must be combined with clinical observations
and patient history.
Nucleic Acid Amplification test (NAAT)performed on the
[employer] platform.
Imaging:
03/22/2024 Abdominal ultrasound: Diffuse fatty infiltration of the liver noted, but normal flow in the portal and hepatic veins. Spleen is normal. Gallbladder is well-visualized and normal. No dilatation of the common or intrahepatic ducts.
Please see full dictation for additional detail.
[2024-03-25] MEDS: CRESTOR 10 MG PO (18:45)
[2024-03-25 19:27] VITALS: BP 128/81
[2024-03-25] MEDS: MIRALAX 17 GRAMS PO (21:49)
[2024-03-25 23:29] VITALS: BP 123/75
[2024-03-26 03:40] VITALS: BP 124/79
[2024-03-26 06:00] VITALS: BMI 27.0
[2024-03-26 06:23] LABS: % Basophils 0.6 % (0-2); % Eosinophils 3.5 % (0-6); % Immature Granulocytes 0.6 % (0-0.5); % Lymphocytes 32.4 % (20.5-51.1); % Monocytes 14.5 % (1.7-9.3); % Neutrophils 48.4 % (42.2-75.2); Absolute Eosinophils 0.2 10^3/uL (0-0.7); Absolute Lymphocytes 1.7 10^3/uL (1.2-3.4); Absolute Monocytes 0.8 10^3/uL (0.1-0.6); Absolute Neutrophils 2.6 10^3/uL (1.4-6.5); Hematocrit 39.9 % (39.0-52.0); Mean Corp Hgb Conc. 32.6 g/dL (33.0-37.0); Mean Corpuscular Hgb 29.7 pg (27.0-31.0); Mean Corpuscular Volume 91.1 fL (80.0-94.0); Mean Platelet Volume 9.4 fL (7.4-10.4); Nucleated Red Blood Cells % 0 % (-); Platelet Count 238 10^3/uL (130-400); Red Blood Cell Count 4.38 10^6/uL (4.70-6.10); Red Cell Dist. Width 13.1 % (11.5-14.5); White Blood Cell Count 5.4 10^3/uL (4.8-10.8)
[2024-03-26 06:49] LABS: ALT (SGPT) 78 U/L (0-50); AST (SGOT) 78 U/L (17-59); Albumin 3.5 g/dl (3.5-5.0); Alkaline Phosphatase 157 U/L (38-126); Blood Urea Nitrogen 16 mg/dl (9-20); Calcium 8.7 mg/dl (8.4-10.2); Carbon Dioxide 27 mmol/L (22-30); Chloride 104 mmol/L (98-107); Estimated Creatinine Clearance 71 ml/min; Glucose 92 mg/dl (70-99); Potassium 4.2 mmol/L (3.5-5.1); Sodium 141 mmol/L (135-145); Total Bilirubin 0.7 mg/dl (0.2-1.3); Total Protein 6.2 g/dl (6.3-8.2); eGFR > 60.00
[2024-03-26 07:45] VITALS: BP 103/66
--- NOTE | 2024-03-26 07:59 | W.PN.URO.CBU ---
Today's Communication / Plan
-
discharge on iv antibx when medically stable
Assessment / Plan
-
ESBL UTI/prostatitis
sig BPH
urinary retention
plan
outpt iv antibx per ID
samples of gemtesa given for spasms
pt has appointment for [facility] in apr 09
Diagnosis
-
Date of Service: March 26, 2024
-
Patient Diagnosis:
urinary retention
ESBL UTI/prostatitis
Subjective
-
pt feeling somewhat better
no fevers/wbc normalized
less spasms
OUTPATIENT UCX + FOR ESBL- PLACED ON FRONT OF CHART
Objective
-
Vital Signs
Temp Pulse Resp BP Pulse Ox
98.3 F 80 18 124/79 97
03/26/24 03:40 03/26/24 03:40 03/26/24 03:40 03/26/24 03:40 03/26/24 03:40
Intake and Output
03/25/24 03/26/24 03/27/24
06:59 06:59 06:59
Intake Total 1680 / 1680 1440 / 1440
Output Total 1500 / 1500 500 / 500
Balance 180 / 180 940 / 940
Intake:
Oral fluids 1680 / 1680 1380 / 1380
IV piggybacks 60 / 60
Output:
Urine, Kapoor 1500 / 1500 500 / 500
Laboratory Results
03/26/24 06:05
03/26/24 06:05
Review of Systems
-
Constitutional: Fatigue
Respiratory: No Symptoms
Cardiac: No Symptoms
Abdomen/GI: No Symptoms
: Other (dawit willoughby)
Physical Exam
-
General - no acute distress
[2024-03-26] MEDS: FLOMAX 0.4 MG PO (08:23)
[2024-03-26] MEDS: HEPARIN 5000 UNITS SC (08:23)
[2024-03-26] MEDS: DETROL LA 4 MG PO (08:23)
[2024-03-26] MEDS: TYLENOL 650 MG PO (08:23)
[2024-03-26 11:55] VITALS: BP 117/71
[2024-03-26] MEDS: INVANZ 60 MG IV (12:20)
--- NOTE | 2024-03-26 12:40 | W.PN.HOSP.TC ---
Addendum entered and electronically signed by Brandon Laws MD 03/26/24 16:37:
[id number]
Original Note:
Today's Communication/Plan
-
Ertapenem
f/u lfts outpt
f/u urology 04/09
f/u id, pcp outpatient
Assessment / Plan
Assessment / Plan
# Sepsis secondary to CAUTI
# Urinary leakage around Kapoor catheter secondary to improper size/urinary retention
# Hx ESBL E. coli 02/03/2024
# Status post transperineal prostate biopsy recently
-Kapoor catheter upsized in ER by urology services
-Patient having significant spasms and associated urine leakage around the urethra
-Urine culture from previous visit has grown ESBL E. coli�discharge on ertapenem at home
-ID consulted and following along
-Currently patient on ertapenem, follow-up urine/blood culture report - remains NTD
-Urology planning to do repeat imaging if clinically not improved
-Valium/Detrol provided for symptomatic bladder spasm
�Follow-up urology, ID outpatient
#Hyperbilirubinemia - normalized
probably sepsis
-ctm oupt
no ruq pain
#Transaminitis
� Most likely secondary to antibiotics
� Follow-up LFTs outpatient closely with ID/PCP while on Ertapenem
� No right upper quadrant tenderness
#GERD
-No current medication
#HLD
-Fatty liver on abdominal ultrasound
-Continue Crestor 10 mg every afternoon
#Gout
-Continue allopurinol
#Hx colonic polyps on colonoscopy benign at age 60
DVT prophylaxis Subcu heparin
Full code
More than 30 minutes spent in discharge including
Final examination of the patient
Summarizing hospital stay
Instructions for continuing care to all relevant caregivers
Preparation of discharge records, prescriptions, and referral forms
Total time spent (37 in minutes):
Anticipated Discharge: Today
Subjective/Interval History
-
Date of Service: March 26, 2024
No acute events overnight
Objective Data
-
Labs:
Laboratory Results
03/26/24
06:05
WBC 5.4
Hgb 13.0
Hct 39.9
Plt Count 238
Sodium 141
Potassium 4.2
Chloride 104
Carbon Dioxide 27
BUN 16
Creatinine 1.1
Glucose 92
Calcium 8.7
Total Bilirubin 0.7
AST 78 H
ALT 78 H
Alkaline Phosphatase 157 H
Vital Signs:
Vital Signs
Temp Pulse Resp BP Pulse Ox
97.9 F 69 18 117/71 94
03/26/24 11:55 03/26/24 11:55 03/26/24 11:55 03/26/24 11:55 03/26/24 11:55
I&O
03/25/24 03/26/24 03/27/24
06:59 06:59 06:59
Intake Total 1680 / 1680 1440 / 1440
Output Total 1500 / 1500 500 / 500
Balance 180 / 180 940 / 940
Review of Systems
-
History Source: Patient
All other systems: Not reviewed unless documented
Physical Exam
-
General: No Apparent Distress and Comfortable
HEENT: Negative Oxygen
Respiratory: Clear to Auscultation
Cardiac: Regular Rhythm and S1/S2; Negative Murmur or Rub
GI: Soft, Nontender and Nondistended
Genito-urinary: Kapoor (clear urine)
Musculoskeletal: No Edema
Neuro: Awake, Alert, Oriented, No Motor Deficits and Nonfocal/Grossly Intact
Psych: Calm
--- NOTE | 2024-03-26 12:44 | W.DS.TRANS ---
DC Summary - Field Support Specialist
-
Discharge Instructions:
Discharge Diagnosis/Procedures complicated urinary tract infection (CAUTI)
Diet Low Cholesterol,Low Fat
Activity As tolerated
Blood Work cbc, bmp, lfts in 1 week
Instructions:
Stand-Alone Forms:
Changes to Home Medications: Yes
Discharge Medications:
DC Medications w/original date entered in [facility]
allopurinol 300 mg tablet 300 mg PO QPM Gout 04/22/21
rosuvastatin 10 mg tablet (Crestor) 10 mg PO QPM High Cholesterol 04/22/21
methenamine 81.6 mg-sod phos 40.8 mg-methylene blue 0.12mg-hyos tablet (Urogesic-Blue) 1 tab PO BID Urinary Issue 02/07/24
tamsulosin 0.4 mg capsule (Flomax) 0.4 mg PO BID Urinary Issue 02/07/24
methenamine hippurate 1 gram tablet 1 g PO BID Urinary Issue 03/22/24
Ertapenem [Invanz] 1,000 mg 120 mls/hr IV Q24H 03/26/24
tolterodine 4 mg capsule,extended release 24 hr 4 mg PO DAILY 30 days #30 caps 03/26/24
Home Medication Changes
Ertapenem [Invanz] 1,000 mg 120 mls/hr IV Q24H 03/26/24
tolterodine 4 mg capsule,extended release 24 hr 4 mg PO DAILY 30 days #30 caps 03/26/24
Pending Results: No
--- NOTE | 2024-03-26 13:41 | W.PN.ID1 ---
Date of Service
Date of Service: March 26, 2024
Today's Communication
Continue antibiotics.
Assessment / Plan
Complicated urinary tract infection (CAUTI)
- Recent Hx of ESBL E. coli (02/03/2024)
- ESBL recovered on most recent urinalysis
Leukocytosis
Fever (low-grade)
Recent transperineal prostate biopsy
Hyperbilirubinemia
Dyslipidemia
Rheumatoid arthritis
BPH
Tinnitus
Recommendations:
Urine culture has also been obtained here and is negative likely due to prior to arrival gentamicin and fosfomycin
Outpatient urine culture performed on 03/21 reveals ongoing presence of ESBL E. coli
Monitor blood cultures - no growth to date
Follow white count and temperature curve.
Kapoor recently exchanged
Patient will need a course of IV antibiotics. Home infusion sheet completed and given to Case Management.
Continue ertapenem 1 g IV every 24 hours through 04/22/2024 (~4-week course) with option to continue if necessary.
Follow-up in office in 2 to 3 weeks.
����������������������������������������������������������
Chief Complaint
-: UTI
Subjective / Review of Systems
Review of Systems: No Fever and No Chills
Vital Signs / Physical Exam
Vital Signs
Vital Signs
Temp Pulse Resp BP Pulse Ox
97.9 F 69 18 117/71 94
03/26/24 11:55 03/26/24 11:55 03/26/24 11:55 03/26/24 11:55 03/26/24 11:55
Physical Exam
Constitutional: No Acute Distress, Comfortable and Non-toxic
Cardiovascular: Regular Rate and S1/S2
Pulmonary: Clear and Symmetric; Negative Wheezes or Rales
Gastrointestinal: Soft, Non Tender, Non Distended and Normal Bowel Sounds
Genito-Urinary: Kapoor (To bag)
Skin: Warm and Dry; Negative Rash or Jaundice
Neurological: Awake
Lines: PICC (Right upper extremity)
Objective Data
Lab Data
Lab Results
03/26/24 06:05
03/26/24 06:05
Estimated Creat Clear 71 ml/min 03/26/24 06:05
Lactic Acid 0.8 mmol/L (0.7-2.0) 03/22/24 09:02
Total Bilirubin 0.7 mg/dl (0.2-1.3) 03/26/24 06:05
AST 78 U/L (17-59) H 03/26/24 06:05
ALT 78 U/L (0-50) H 03/26/24 06:05
Alkaline Phosphatase 157 U/L (38-126) H 03/26/24 06:05
Most recent labs reviewed.
Micro Results:
03/22/24 09:02 Blood Culture - Preliminary
Blood/Venous No Growth in 4 days- Final report to follow
03/22/24 09:02 Blood Culture - Preliminary
Blood/Venous No Growth in 4 days- Final report to follow
03/22/24 09:40 Urine Culture - Final
Urine NO GROWTH
03/22/24 09:02 Influenza Types A & B (KIKA) - Final
Nasal Swab Negative for Influenza A & B, NAAT
Negative results must be combined with clinical observations
and patient history.
Nucleic Acid Amplification test (NAAT)performed on the
[employer] platform.
Outpatient Urine Culture (03/21/2024)
Imaging:
03/22/2024 Abdominal ultrasound: Diffuse fatty infiltration of the liver noted, but normal flow in the portal and hepatic veins. Spleen is normal. Gallbladder is well-visualized and normal. No dilatation of the common or intrahepatic ducts.
Please see full dictation for additional detail.
Care Review
Plan reviewed with: Physician (Hospitalist)
--- NOTE | 2024-03-26 15:44 | CM ---
Patient seen bedside, will require home IV antibiotics. Referral/script faxed to [facility]. Per Anita, able to do bedside teaching/delivery tomorrow. Patient will have $50 co pay per nursing visit, patient has $2,000 deductible, patient is 100%
covered once deductible is met, unable to tell cost of medications prior to deductible being met, patient can contact insurance for estimate. Patient see bedside, benefits explained. Patient upset regarding bedside teaching for tomorrow, was under
impression he would be discharged today. CM spoke with Anita, patient can go to outpatient infusion suite at [facility] or [place] to receive bedside teaching, update to nurse. Anita will call patient to discuss which suite patient will go to
tomorrow, 03/27. CM will continue to follow for all discharge planning needs.
Plan; discharge today, home with [facility] for IV antibiotics, patient will follow up tomorrow for infusion teaching at suite.
[facility]
[2024-03-26 15:58] VITALS: BP 135/88
== END 2024-03-26 16:44 | disposition home or self-care (01) | DRG 698 ==
LOC: 4 WEST ACU 16:06
PROVIDERS: Clinical Nurse Specialist Family Health; Hospitalist; Radiology Diagnostic Radiology; ADMITTING PHYSICIAN Hospitalist; ATTENDING PHYSICIAN Internal Medicine; CONSULT PHYSICIAN Internal Medicine Infectious Disease; EMERGENCY PHYSICIAN Emergency Medicine; FAMILY PHYSICIAN Internal Medicine; OTHER PHYSICIAN Specialist
PROC: 02HV33Z Insertion of Infusion Device into Superior Vena Cava, Percutaneous Approach (ICD-10-PCS; 2024-03-25)
DX: T83.511A Infection and inflammatory reaction due to indwelling urethral catheter, initial encounter (principal); A41.51 Sepsis due to Escherichia coli [E. coli]; N39.0 Urinary tract infection, site not specified; E78.00 Pure hypercholesterolemia, unspecified; M06.9 Rheumatoid arthritis, unspecified; N41.9 Inflammatory disease of prostate, unspecified; K21.9 Gastro-esophageal reflux disease without esophagitis; K76.0 Fatty (change of) liver, not elsewhere classified; N40.1 Benign prostatic hyperplasia with lower urinary tract symptoms; R33.8 Other retention of urine; M10.9 Gout, unspecified; Y84.6 Urinary catheterization as the cause of abnormal reaction of the patient, or of later complication, without mention of misadventure at the time of the procedure
CPT/HCPCS: 71045; 71046; 76700; 80053; 81003; 81015; 82248; 83605; 85025; 86803; 87040; 87086; 87502; 96361; 96365; 96375; 99285; J1335

== ENCOUNTER → 2024-07-31 08:34 | Outpatient (REF) | payer OTHER, SELFPAY | LOC: HWRAD 08:34 | PROVIDERS: ATTENDING PHYSICIAN Urology; FAMILY PHYSICIAN Internal Medicine | DX: R10.9 Unspecified abdominal pain (principal) | CPT/HCPCS: 76770 ==